=== PATIENT | female | born 1960 | race Caucasian/White ===

== ENCOUNTER → 2017-07-11 09:35 | Emergency (ER) | payer OTHER ==
[~2017-07-11 09:35] MED LIST: NS 0.9% 1000 ML* 1,000 ML IV ONE
[2017-07-11 10:41] LABS: Hematocrit 35 % (35-47); Hemoglobin 11.5 g/dl (12.0-16.0); Mean Corpuscular HGB Conc 33 g/dl (31-36); Mean Corpuscular Hemoglobin 33 pg (27-31); Mean Corpuscular Volume 98 fL (80-97); Mean Platelet Volume 8 um3 (7.4-10.4); Red Blood Count 3.52 10^6/ul (4.0-5.4); Red Cell Distribution Width 13 % (10.5-15)
--- NOTE | 2017-07-11 10:58 | ED ---
Syncope/Near Syncope - HPI Summary HPI Summary: Patient SILVESTRE with a syncopal episode 30 minutes prior to arrival. She was at a swimming class this morning when she mentioned to the instructor she was feeling light headed and dizzy. She was able to get out of the pool and then proceeded to syncopize. The ambulance was called and the patient then told the EMT she had taken a marijuana cookie for the first time early this at approximately 2am. She proceeded to go to bed after and was functioning fine this morning prior to her swimming class. She notes that she has anxiety over swimming but has been in the class for awhile without having any episodes. She endorses 2 previous episodes of syncope many years ago, but never determined the cause. She denies health problems. She takes lithium, gabapentin and prozac. She denies taking any excess or missing any doses. ON exam, she denies chest pain, pressure, dizziness, fatigue, weakness, abdominal pain, sweats or chills. Surgery "tummy tuck" 2 months ago with no complications. - History Of Current Complaint Chief Complaint: EDSyncope Time Seen by Provider: 07/11/17 09:48 Hx Obtained From: Patient Onset/Duration: Sudden Onset Timing: Constant Context: Witnessed Activity At Onset: Exertion Associated Head Trauma: No Aggravating Factor(s): Nothing Alleviating Factor(s): Nothing Associated Signs And Symptoms: Weakness Frequency: Episodes x___ - 1, Episodes Lasting ____ (in Mins/Days/Weeks/Years) - 5 min - Risk Factors Cardiac Risk Factors: Negative Dysrhythmia Risk Factors: Negative Risk Factor(s): Negative - Allergies/Home Medications Allergies/Adverse Reactions: Allergies Allergy/AdvReac Type Severity Reaction Status Date / Time No Known Allergies Allergy Verified 07/11/17 09:48 Home Medications: Home Medications FLUoxetine CAP* [Prozac CAP*] 40 mg PO .DAILY AM 07/11/17 [History Confirmed ] Gabapentin CAP(*) [Neurontin 300 CAP(*)] 300 mg PO TID 07/11/17 [History Confirmed 07/11/17] [place] Carbonate ER TAB* 900 mg PO DAILY 07/11/17 [History Confirmed 07/11/17] PMH/Surg Hx/FS Hx/Imm Hx Previously Healthy: Yes - Immunization History Hx Pertussis Vaccination: No Immunizations Up to Date: Unable to Obtain/Confirm Infectious Disease History: No Infectious Disease History: Denies: Traveled Outside the [place] in Last 30 Days - Social History Occupation: Employed Part-time Lives: With Family Alcohol Use: None Hx Substance Use: Yes Substance Use Type: Reports: Marijuana Substance Use Comment - Amount & Last Used: "cookie for the first time at 2:00 am" Hx Tobacco Use: No Smoking Status (MU): Never Smoked Tobacco Review of Systems Constitutional: Negative Eyes: Negative Cardiovascular: Negative Respiratory: Negative Genitourinary: Negative Positive: no symptoms reported, see HPI Musculoskeletal: Negative Positive: Weakness Positive: Anxious All Other Systems Reviewed And Are Negative: Yes Physical Exam Triage Information Reviewed: Yes Vital Signs On Initial Exam: Initial Vitals BP 121/84 07/11/17 09:40 Vital Signs Reviewed: Yes Appearance: Positive: Well-Appearing, Well-Nourished Skin: Positive: Skin Color Reflects Adequate Perfusion, Diaphoretic Head/Face: Positive: Normal Head/Face Inspection Eyes: Positive: EOMI, ROBERT, Conjunctiva Clear, Other: - mydriasis ENT: Positive: Pharynx normal, TMs normal, Other - dry mucous membranes Neck: Positive: Supple, No Lymphadenopathy Respiratory/Lung Sounds: Positive: Clear to Auscultation, Breath Sounds Present Cardiovascular: Positive: Normal, RRR, Pulses are Symmetrical in both Upper and Lower Extremities Neurological: Positive: Sensory/Motor Intact, Normal Gait, Disoriented, Slurred Speech, Other - oriented to person and place but not time Psychiatric: Positive: Normal AVPU Assessment: Alert - [place] Coma Scale Best Eye Response: 3 - To Speech Best Motor Response: 6 - Obeys Commands Best Verbal Response: 4 - Confused Coma Scale Total: 14 Diagnostics - Vital Signs Vital Signs Temp Pulse Resp BP Pulse Ox 07/11/17 09:45 98.1 F 77 20 121/84 98 07/11/17 09:42 98.1 F 74 16 121/84 97 07/11/17 09:41 74 18 97 07/11/17 09:40 121/84 - Laboratory Lab Results: Lab Results 07/11/17 Range/Units 10:27 WBC 6.0 (3.5-10.8) 10^3/ul RBC 3.52 L (4.0-5.4) 10^6/ul Hgb 11.5 L (12.0-16.0) g/dl Hct 35 (35-47) % MCV 98 H (80-97) fL MCH 33 H (27-31) pg MCHC 33 (31-36) g/dl RDW 13 (10.5-15) % Plt Count 228 (150-450) 10^3/ul MPV 8 (7.4-10.4) um3 Neut % (Auto) 79.3 (38-83) % Lymph % (Auto) 10.2 L (25-47) % [place] % (Auto) 7.9 (1-9) % Eos % (Auto) 1.7 (0-6) % Baso % (Auto) 0.9 (0-2) % Absolute Neuts (auto) 4.7 (1.5-7.7) 10^3/ul Absolute Lymphs (auto) 0.6 L (1.0-4.8) 10^3/ul Absolute Monos (auto) 0.5 (0-0.8) 10^3/ul Absolute Eos (auto) 0.1 (0-0.6) 10^3/ul Absolute Basos (auto) 0.1 (0-0.2) 10^3/ul Absolute Nucleated RBC 0 10^3/ul Nucleated RBC % 0 Result Diagrams: 07/11/17 10:27 07/11/17 10:27 Lab Statement: Any lab studies that have been ordered have been reviewed, and results considered in the medical decision making process. Course/Dx Course Of Treatment: During the course of treatment, a complete neuro exam was completely. . Normal head/face inspection with no cephalohematoma. Reflexes intact. EOMI, ROBERT, visual acuity intact. Mydriasis noted. No obvious confusion or memory loss per patient and family. MMSE OK. GCS 14. Patient oriented to person, place and date, although asked twice for correct date. No obvious deformity or signs of trauma. Finger to nose positive. heel to toe OK. Speech normal, facial symmetry, normal gait, CN II-III intact. Patient denies LOC. ROM , strength, reflexes in upper and lower extremity intact, sensation intact. Patient is extremely fatigued and is asked multiple times to repeat herself d/t slurring and fatigue. She repeatedly will stop mid-sentence and fall asleep. When asked if she is tired, she states she "feels, much better." But she is refusing through exam to open her eyes, stating she is "tired.". Drug screen obtained: EKG shows sinus rhymthm with no changes. CT brain obtained: IMPRESSION: NO EVIDENCE FOR GROSS ACUTE INFARCT, MASS EFFECT OR HEMORRHAGE. Labs obtained: Bun/cr elevated at 38 but likely sescondary to the lithium. this is baseline compared to last year. Provider spoke with who was unaware she ingested the pot cookie the night before. Drug screening shows canniboids only. Positive for 3+ leuks. Prescribed macrobid 100mg BID x 5 days. Avoided bactrim for kidney function. Medications were reveiwed with patient. Encouarged to follow up with PCP or return to ED for worsening symptoms. Return precautions given. Patient understands and agrees with plan. Ok for discharge. - Diagnoses Differential Diagnosis/HQI/PQRI: Positive: Cerebral Vascular Accident, Coronary Artery Disease, Metabolic Reaction, Vasovagal Episode Provider Diagnoses: Syncope Discharge - Discharge Plan Condition: Stable Disposition: HOME Prescriptions: Nitrofurantoin Monohyd Macro [Macrobid] 100 mg PO BID #10 cap Patient Education Materials: Syncope (ED) Referrals: Elizabeth Dominguez NP [Primary Care Provider] - Additional Instructions: Follow up with your PCP Drink plenty of fluids and rest today
[2017-07-11 11:00] LABS: BUN/Creatinine Ratio 38.6 (8-20); Calcium 9.3 mg/dL (8.6-10.3); EGFR African American 91.8 (>60); EGFR Non-African American 71.4 (>60); Globulin 2.9 g/dL (2-4); Magnesium 2.2 mg/dL (1.9-2.7); Potassium 3.9 mmol/L (3.5-5.0); Total Bilirubin 0.3 mg/dL (0.2-1.0); Total Protein 6.9 g/dL (6.4-8.9); Troponin I 0.01 ng/mL (<0.04)
[2017-07-11 11:17] LABS: Acetaminophen < 15 mcg/mL; Alcohol < 10 mg/dL (<10); Lithium 0.92 mmol/L (0.6-1.2); Salicylate < 2.50 mg/dL (<30)
--- NOTE | 2017-07-11 11:18 | RAD ---
INDICATION: Altered mental status. COMPARISON: There are no prior studies available for comparison. TECHNIQUE: Contiguous axial sections of the brain were obtained from the skull base to the vertex without contrast. FINDINGS: The ventricles, cisterns and sulci are within normal limits. No significant focal abnormality or mass effect is seen. There is no evidence for hemorrhage. 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 No significant focal osseous abnormality is seen. The visualized portion of the paranasal sinuses and mastoid air cells appear clear. IMPRESSION: NO EVIDENCE FOR GROSS ACUTE INFARCT, MASS EFFECT OR HEMORRHAGE.
[2017-07-11 14:14] LABS: Urine Bacteria 1+ (Absent); Urine Bilirubin Negative (Negative); Urine Glucose Negative (Negative); Urine Nitrite Negative (Negative)
[2017-07-11 14:19] LABS: Benzodiazepine Urine Screen None Detected (None Detect)
[2017-07-11 16:51] VITALS: BP 90/62
== END | disposition home or self-care (01) ==
LOC: ED 09:35
DX: R55 Syncope and collapse (principal); R53.1 Weakness; F41.9 Anxiety disorder, unspecified
CPT/HCPCS: 36415; 70450; 80053; 80178; 80307; 80320; 80329; 81003; 81015; 82947; 83735; 84443; 84484; 85025; 87086; 93005; 99283; G0480

== ENCOUNTER 2018-08-07 22:50 | Emergency (ER) | payer OTHER ==
[2018-08-07 22:54] VITALS: BP 113/85
[2018-08-07] MEDS ORDERED: Morphine VIAL* 4 MG/ML VIAL (1 ml vial) IV ONE (23:31)
[2018-08-07] MEDS ORDERED: Dicyclomine CAP* 10 MG PO ONE (23:31)
[2018-08-07] MEDS ORDERED: NS 0.9% 1000 ML* 1,000 ML IV ONE (23:31)
--- NOTE | 2018-08-07 23:32 | ED ---
Abdominal Pain/Female - HPI Summary HPI Summary: This patient is a 57 year old female presenting to [facility] accompanied by with a chief complaint of abd pain since 3 days ago, continuously worsening. Patient states that pain is constant. The pain is rated 9/10 in severity. Symptoms aggravated by nothing. Symptoms alleviated by nothing. The patient treated the sx with an enema to no relief. Patient additionally reports constipation and states that she has not been moving her bowels. She states that constipation is a recurring problem for her and that she has treated it with miralax normally, but this time there was no relief. Patient denies nausea , vomiting. - History of Current Complaint Chief Complaint: EDAbdPain Stated Complaint: ABD PAIN Time Seen by Provider: 08/07/18 23:21 Hx Obtained From: Patient Onset/Duration: Still Present Timing: Constant Severity Currently: Severe Pain Intensity: 9 Pain Scale Used: 0-10 Numeric Location: Diffuse Aggravating Factor(s): Nothing Alleviating Factor(s): Nothing Associated Signs and Symptoms: Positive: Negative - nausea, vomiting, Constipation Allergies/Adverse Reactions: Allergies Allergy/AdvReac Type Severity Reaction Status Date / Time No Known Allergies Allergy Verified 07/11/17 09:48 PMH/Surg Hx/FS Hx/Imm Hx Previously Healthy: Yes EENT History: Denies: Hx Deafness Infectious Disease History: No Infectious Disease History: Denies: Traveled Outside the [place] in Last 30 Days - Family History Known Family History: Negative: Hypertension - Social History Lives: With Family Alcohol Use: None Hx Substance Use: Yes Substance Use Type: Reports: Marijuana Hx Tobacco Use: No Smoking Status (MU): Never Smoked Tobacco Review of Systems Negative: Fever Positive: Abdominal Pain, Other - constipation. Negative: Vomiting, Nausea All Other Systems Reviewed And Are Negative: Yes Physical Exam - Summary Physical Exam Summary: Appearance: Well-appearing, Well-nourished, lying in bed comfortable Skin: Warm, no obvious rash, mild diaphoresis Eyes: sclera anicteric, no conjunctival pallor ENT: mucous membranes moist Neck: deferred Respiratory: No signs of respiratory distress Cardiovascular: Appears well perfused, pulses are nml Abdomen: lower abd tenderness without peritoneal signs. Musculoskeletal: Moving all 4 extremities without obvious discomfort Neurological: Awake and alert, mentation is normal, speech is fluent and appropriate Psychiatric: affect is normal, does not appear anxious or depressed Triage Information Reviewed: Yes Vital Signs On Initial Exam: Initial Vitals Temp Pulse Resp BP Pulse Ox 98.5 F 82 16 113/85 98 08/07/18 22:52 08/07/18 22:52 08/07/18 22:52 08/07/18 22:52 08/07/18 22:52 Vital Signs Reviewed: Yes Diagnostics - Vital Signs Vital Signs Temp Pulse Resp BP Pulse Ox 08/07/18 22:52 98.5 F 82 16 113/85 98 - Laboratory Result Diagrams: 08/07/18 23:48 08/07/18 23:48 Lab Statement: Any lab studies that have been ordered have been reviewed, and results considered in the medical decision making process. - CT CT Abd/Pel CT Interpretation: No Acute Changes - CT Abd/Pel reveals, per radiologist, 1. No acute findings. 2. The colon is partially filled with stool and air. The patient could be constipated. ED physician has reviewed this radiology report. CT Interpretation Completed By: Radiologist Abdominal Pain Fem Course/Dx - Course Course Of Treatment: This patient is a 57 year old female presenting to [facility] accompanied by with a chief complaint of abd pain since 3 days ago, continuously worsening. CT Abd/Pel reveals, per radiologist, 1. No acute findings. 2. The colon is partially filled with stool and air. The patient could be constipated. ED physician has reviewed this radiology report. Bloodwork Obtained. Urinalysis Obtained. In the ED course the patient was given NS 0.9% bolus IV, Morphine 4mg IV, Iohexol 105mL IV, Bentyl 10mg PO. Patient will be discharged with a dx of Constipation and a prescription for Golytely. Patient is advised to follow up with PCP if symptoms reoccur. The patient is agreeable with this plan. Discharge - Sign-Out/Discharge Documenting (check all that apply): Patient Departure - Discharge Plan Condition: Good Disposition: HOME Prescriptions: Peg 3000 Gi Lavage* [Golytely*] 4,000 ml PO ONCE #1 btl Patient Education Materials: Constipation (ED) Referrals: Elizabeth Dominguez NP [Primary Care Provider] - - Attestation Statements Document Initiated by Scribe: Yes Documenting Scribe: Merlyn Wolfe Provider For Whom Scribe is Documenting (Include Credential): MD Marita Guzmanibtrenton Attestation: Merlyn Peng scribed for Ziggy Edmonds MD on 08/08/18 at 0529.
[2018-08-07] MEDS ORDERED: Morphine INJ* 4 MG/ML 1 ML SYRINGE (NEW SYRINGE VERSION) ONE (23:46)
[2018-08-07 23:53] LABS: Urine Appearance Clear; Urine Blood 1+ (Negative); Urine Color Yellow; Urine Ketones Negative (Negative); Urine Protein Negative (Negative); Urine Red Blood Cell 3+(>10/hpf) (Absent); Urine Specific Gravity 1.012 (1.010-1.030); Urine Urobilinogen Negative (Negative); Urine White Blood Cell Absent (Absent)
[2018-08-07 23:58] LABS: ABS Basophils 0.1 10^3/ul (0-0.2); ABS Eosinophils 0 10^3/ul (0-0.6); ABS Monocytes 0.7 10^3/ul (0-0.8); ABS Neutrophils 9.9 10^3/ul (1.5-7.7); ABS Nucleated RBC 0 10^3/ul; Eosinophil % 0.3 % (0-6); Hematocrit 41 % (35-47); Lymphocyte % 8.2 % (25-47); Mean Corpuscular HGB Conc 34 g/dl (31-36); Mean Corpuscular Hemoglobin 32 pg (27-31); Mean Corpuscular Volume 95 fL (80-97); Mean Platelet Volume 8.5 um3 (7.4-10.4); Nucleated Red Blood Cells % 0.1; Platelet Count 245 10^3/ul (150-450); Red Blood Count 4.32 10^6/ul (4.00-5.40); Red Cell Distribution Width 13 % (10.5-15); White Blood Count 11.7 10^3/ul (3.5-10.8)
[2018-08-08 00:20] LABS: EGFR Non-African American 68.3 (>60)
[2018-08-08] MEDS ORDERED: Iohexol 300* (CONTRAST) 10 ML SDV IV ONE (02:52)
--- NOTE | 2018-08-08 03:44 | RAD ---
EXAM: CT Abdomen and Pelvis With Intravenous Contrast CLINICAL HISTORY: 57 years old, female; Pain; Abdominal pain; Localized; Lower; Prior surgery; Surgery date: 6+ months; Surgery type: Tummy tuck; Additional info: Low abd pain x 3 days, getting worse TECHNIQUE: Axial computed tomography images of the abdomen and pelvis with intravenous contrast. All CT scans at this facility use at least one of these dose optimization techniques: automated exposure control; mA and/or kV adjustment per patient size (includes targeted exams where dose is matched to clinical indication); or iterative reconstruction. Coronal and sagittal reformatted images were created and reviewed. CONTRAST: 105 mL of OMNI 300 administered intravenously. COMPARISON: No relevant prior studies available. FINDINGS: Lung bases: Bilateral breast augmentation. Linear opacities located in left lung base which could represent areas of atelectasis and/or scarring. ABDOMEN: Liver: The liver is of normal size and appearance no focal hepatic lesion. Gallbladder and bile ducts: The gallbladder is distended. No calcified gallstone. No gallbladder wall thickening. No ductal dilation. Pancreas: Unremarkable. No mass. No ductal dilation. Spleen: The spleen is of normal size and appearance. Adrenals: The adrenal glands are normal in appearance. Kidneys and ureters: The kidneys are of normal size and appearance. No hydronephrosis or nephrolithiasis. Stomach and bowel: No bowel obstruction. No abnormal bowel wall thickening. The colon is distended with stool and air. No abnormal bowel wall thickening. No bowel wall pneumatosis. No mesenteric inflammation. PELVIS: Appendix: No findings to suggest acute appendicitis. Bladder: Unremarkable. No mass. Reproductive: No adnexal mass. ABDOMEN and PELVIS: Intraperitoneal space: No free intra-abdominal fluid or air. Bones/joints: No acute fracture. No dislocation. Soft tissues: Umbilical hernia containing fat. Vasculature: Unremarkable. No abdominal aortic aneurysm. Lymph nodes: Unremarkable. No enlarged lymph nodes. IMPRESSION: 1. No acute findings. 2. The colon is partially filled with stool and air. The patient could be constipated.
== END 2018-08-08 05:36 | disposition home or self-care (01) ==
LOC: ED 22:50
DX: K59.00 Constipation, unspecified (principal); R10.9 Unspecified abdominal pain
CPT/HCPCS: 36415; 74177; 80053; 81003; 81015; 83605; 83690; 85025; 96374; 96375; 99284; A9270-GY; J2270; Q9967

== ENCOUNTER 2019-04-10 08:31 | Emergency (ER) | payer OTHER ==
--- OUTSIDE RECORDS SUMMARY | 2019-04-10 08:50 | XMS REPORT ---
:1960 Author Organization [facility] Address [address] [place] [address] Care Team Providers Name Role Phone Leonardo Anguiano Unavailable Unavailable PROBLEMS Type Condition ICD9-CM Code [id number] Code Onset Condition SNOMED Code Dates Status Problem BMI Z68.30 Active 566146859 30.0-30.9,adult Problem Other obesity E66.09 Active 905417235 due to excess calories Problem High cholesterol E78.00 Active 53713345 Problem Bipolar 1 F31.9 Active 909225230 disorder Problem Anxiety F41.9 Active 34748399 ALLERGIES No Information ENCOUNTERS Encounter Location Date Diagnosis [facility] [address] [facility], [place] [address] [place], [place] [address] [facility] [address] [facility], [place] [address] [facility] [address] [place] [address], [place] [address] [place], [place] [address] [facility] [address] [facility] [address] [place], [place] [address] [facility] [address] [place] [address] [place], [place] [address] [place], [place] [address] [facility] [place] [address] [facility] [place], [place] [address] [facility] [address] [place] [address] [place], [place] [address] [facility] [address] [facility] [place], [place] [address] [facility] [address] [place], Feb, Bipolar 1 [place] [address] F31.9 [facility] [address] [place], Jan, Bipolar 1 [place] [address] F31.9 [facility] [address] [place], Jan, Bipolar 1 [place] [address] [address]31[address] [place], [place] [address] [facility] [address] [place], Jan, Bipolar 1 [place] [address] F31.9 and Anxiety F41.9 [facility] [address] [place], [place] [address] [place], [place] [address] [facility] [address] [place], Dec, Bipolar 1 [place] [address] F31.9 ; Anxiety F41.9 ; Screening for colon cancer Z12.11 ; Need for hepatitis C screening test Z11.59 and Screening, lipid Z13.220 [place] [facility] [address] [place], Nov, Bipolar 1 [place] [address] F31.9 [facility] [address] [facility] [place], [place] [address] [facility] [address] [place], Nov, Bipolar 1 [place] [address] F31.9 [facility] [address] [place], Oct, Bipolar 1 [place] [address] F31.9 [facility] [address] [facility] [address] Oct, Bipolar 1 [place] [address] F31.9 [facility] [address] [place], Oct, Bipolar 1 [place] [address] F31.9 [facility] [address] [place], [place] [address] [facility] [address] [place] [address] Sep, Bipolar 1 [place] [address] F31.9 [facility] [address] [place] [address] [place], [place] [address] [facility] [address] [place] [address] Sep, [place] [address] [facility] [address] [place], Aug, Bipolar 1 [place] [address] F31.9 [facility] [address] [facility] [place], [place] [address] [facility] [address] [place], [place] [address] [facility] [address] [place], Jul, Bipolar 1 [place] [address] F31.9 [place] [facility] [address] [place], [place] [address] [facility] [address] [place], Jul, Bipolar 1 [place] [address] F31.9 ; BMI 30.0-30.9,adult Z68.30 and Other obesity due to excess calories E66.[address] [place], [place] [address] [place] [facility] [address] [place], Jul, Bipolar 1 [place] [address] F31.9 [place] [facility] [address] [place], Jul, Bipolar 1 [place] [address] F31.9 [facility] [address] [facility] Jul, [place] [address] [place] [facility] [address] [place], Jul, Bipolar 1 [place] [address] F31.9 [place] [facility] [address] [place], Jun, Bipolar 1 [place] [address] F31.9 [place] [facility] [address] [place], Jun, Bipolar 1 [place] [address] F31.9 [place] [facility] [address] [place], Jun, Bipolar 1 [place] [address] F31.9 [place] [facility] [address] [place], Jun, Bipolar 1 [place] [address] F31.9 [facility] [address] Jun, [place] [address] cancer Z12.31 [place] [facility] [address] [place], Jun, Bipolar 1 [place] [address] F31.9 [place] [facility] [address] [place], [place], Bipolar 1 [place] [address] F31.9 [place] [facility] [address] [place], [place] [address] [place] [facility] [address] [facility] [place], [place] [address] [facility] [address] [facility] [place], [place] [address] [place] [facility] [address] [facility] [place], [place] [address] [place] [facility] [address] [place] [address] [place], [place], Bipolar 1 [place] [address] F31.9 ; Screening for cervical cancer Z12.4 ; Other obesity due to excess calories E66.09 and BMI 30.0-30.9,adult Z68.30 [place] [facility] [address] [place] [address] [place], [place], Impacted cerumen , [place] [address] [address] [place], [place] [address] [place] [address] [facility] [address] [place] [address] [place], Dec, Bipolar 1 [place] [address] F31.9 ; Anxiety F41.9 and Screening for cervical cancer Z12.4 [place] [facility] [address] [place] [address] [place], [place] [address] IMMUNIZATIONS No Known Immunizations SOCIAL HISTORY Never Assessed REASON FOR REFERRAL FUNCTIONAL STATUS PLAN OF CARE VITAL SIGNS MEDICATIONS Unknown Medications PROCEDURES No Known procedures RESULTS No Results REASON FOR VISIT to make f/u appt Insurance Providers [facility] Health Member Patient Patient Patient Patient Patient Subscriber Subscriber Subscriber Group Insurance Plan Plan Plan Plan ID Relationship Address Phone Name Date of ID Name Date of No Type Insurance Insurance Insurance Coverage to Subscriber Address Phone Name Dates Medicaid [id number] [phone] Medicaid self Deborah [id number] [facility]rap [facility] [address] [facility] [facility] [address] [place] [phone] [place] self Deborah [id number] Ess Plan [id number] Ess Plan 1 [place] [address] [place] [address] [place] [address] [employer] Case [phone] Case self Deborah [id number] Management [place] [address] [facility] [address] [facility] [place] [phone] [place] Cabrera [id number] Essential [place] [address] [place] Plan 1 2 [place] [id number] Plan 1 2 Medical Medical MEDICAL (GENERAL) HISTORY Type Description Date Medical History depression and anxiety. Medical History bipolar Medical History nerve pain. Surgical History 1998 Hospitalization History 1998 Hospitalization History ED visits on several occasions, for mental health issues
--- OUTSIDE RECORDS SUMMARY | 2019-04-10 08:50 | XMS REPORT ---
:1960 Author Organization [facility] Address [address] [place] [address] Care Team Providers Name Role Phone Leonardo Anguiano Unavailable Unavailable PROBLEMS Type Condition ICD9-CM Code XNW86-TM Code Onset Condition SNOMED Code Dates Status Problem BMI Z68.30 Active 290839202 30.0-30.9,adult Problem Other obesity E66.09 Active 206999686 due to excess calories Problem High cholesterol E78.00 Active 18750477 Problem Bipolar 1 F31.9 Active 123987292 disorder Problem Anxiety F41.9 Active 10276833 ALLERGIES No Information ENCOUNTERS Encounter Location Date Diagnosis [facility] [address] [facility], [place] [address] Apr, [place] [address] [facility] [address] [facility], [place] [address] [facility] [address] [place] [address], [place] [address] [place], [place] [address] [facility] [address] [facility] [address] March, [place] [address] [facility] [address] [place] [address] [place], [place] [address] March, [place] [address] [facility] - [facility] - [place] [address] [facility] March, [place] [address] [facility] [address] [place] [address] [place], [place] [address] [facility] [address] [facility] March, [place] [address] [facility] [address] [place], Feb, Bipolar [place] [address] F31.9 [facility] [address] [place], Jan, [place]ipolar 1 [place] [address] F31.9 [facility] [address] [place], Jan, [place]ipolar 1 [place] [address] [address] Jan, [place] [address] [facility] [address] [place], Jan, [place]ipolar 1 [place] [address] F31.9 and Anxiety F41.9 [facility] [address] [place], [place] [address] Dec, [place] [address] [facility] [address] [place], Dec, Bipolar 1 [place] [address] F31.9 ; Anxiety F41.9 ; Screening for colon cancer Z12.11 ; Need for hepatitis C screening test Z11.59 and Screening, lipid Z13.220 [place] [facility] [address] [place], Nov, Bipolar 1 [place] [address] F31.9 [facility] [address] [facility] Nov, [place] [address] [facility] [address] [place], Nov, Bipolar 1 [place] [address] F31.9 [facility] [address] [place], Oct, Bipolar 1 [place] [address] F31.9 [facility] [address] [facility] [address] Oct, Bipolar 1 [place] [address] F31.9 [facility] [address] [place], Oct, Bipolar 1 [place] [address] F31.9 [facility] [address] [place], [place] [address] [facility] [address] [place] [address] Sep, Bipolar 1 [place] [address] F31.9 [facility] [address] [place] [address] Sep, [place] [address] [facility] [address] [place] [address] Sep, [place] [address] [facility] [address] [place], Aug, Bipolar 1 [place] [address] F31.9 [facility] [address] [facility] Aug, [place] [address] [facility] [address] [facility] Aug, [place] [address] [facility] [address] [place], Jul, Bipolar 1 [place] [address] F31.9 [place] [facility] [address] [place], [place] [address] [facility] [address] [place], Jul, Bipolar 1 [place] [address] F31.9 ; BMI 30.0-30.9,adult Z68.30 and Other obesity due to excess calories E66.[address] Jul, [place] [address] [place] [facility] [address] [place], Jul, Bipolar 1 [place] [address] F31.9 [place] [facility] [address] [place], Jul, [place]ipolar 1 [place] [address] F31.9 [facility] [address] [facility] Jul, [place] [address] [place] [facility] [address] [place], Jul, Bipolar 1 [place] [address] F31.9 [place] [facility] [address] [place], Jun, Bipolar 1 [place] [address] F31.9 [place] [facility] [address] [place], Jun, Bipolar 1 [place] [address] F31.9 [place] [facility] [address] [place], Jun, Bipolar 1 [place] [address] F31.9 [place] [facility] [address] [place], Jun, Bipolar 1 [place] [address] F31.9 [facility] [address] Jun, [place] [address] cancer Z12.31 [place] [facility] [address] [place], Jun, Bipolar 1 [place] [address] F31.9 [place] [facility] [address] [place], May, [place]ipolar 1 [place] [address] F31.9 [place] [facility] [address] [place], [place] [address] [place] [facility] [address] [facility] [place], [place] [address] [place] [facility] [address] [facility] [place], [place] [address] [place] [facility] [address] [facility] [place], [place] [address] [place] [facility] [address] [facility] [place], Apr, Bipolar 1 [place] [address] F31.9 ; Screening for cervical cancer Z12.4 ; Other obesity due to excess calories E66.09 and BMI 30.0-30.9,adult Z68.30 [place] [facility] [address] [place] [address] [place], Apr, Impacted cerumen , [place] [address] [address]61[address] Apr, [place] [address] [place] [facility] [address] [place] [address] [place], [place] [address] [place] [facility] [address] [facility] [place], Dec, Bipolar 1 [place] [address] F31.9 ; Anxiety F41.9 and Screening for cervical cancer Z12.4 [place] [facility] [address] [place] [address] [place], [place] [address] IMMUNIZATIONS No Known Immunizations SOCIAL HISTORY Never Assessed REASON FOR REFERRAL FUNCTIONAL STATUS PLAN OF CARE VITAL SIGNS MEDICATIONS Unknown Medications PROCEDURES No Known procedures RESULTS No Results REASON FOR VISIT pt update Insurance Providers [facility] Member Patient Patient Patient Patient Patient Subscriber Subscriber Subscriber Group Insurance Plan Plan Plan Plan ID Relationship Address Phone Name Date of ID Name Date of No Type Insurance Insurance Insurance Coverage to Subscriber Address Phone Name Dates [place] [phone] [place] self Deborah [id number] Essential [place] 47 Essential [place] [address] Plan 1 2 Medical Medical Case [phone] Case self Deborah [id number] Management [place] 02 Management [place] [facility] [address] [facility] Medicaid [id number] [phone] Medicaid self Deborah [id number] Wrap [facility] 56 [address] [facility] [address] [place] [phone] [place] self Deborah [id number] Ess Plan 1 2906 08 Ess Plan 1 [place] 2 Dental [place] [address] [place] [address] [facility] MEDICAL (GENERAL) HISTORY Type Description Date Medical History depression and anxiety. Medical History bipolar Medical History nerve pain. Surgical History 1998 Hospitalization History 1998 Hospitalization History ED visits on several occasions, for mental health issues
--- OUTSIDE RECORDS SUMMARY | 2019-04-10 08:51 | XMS REPORT ---
:1960 Author Organization [facility] Address [address] [place] [address] Care Team Providers Name Role Phone Leonardo Anguiano Unavailable Unavailable PROBLEMS Type Condition ICD9-CM Code KRI54-WA Code Onset Condition SNOMED Code Dates Status Problem BMI Z68.30 Active 497767692 30.0-30.9,adult Problem Other obesity E66.09 Active 624220429 due to excess calories Problem High cholesterol E78.00 Active 96791407 Problem Bipolar 1 F31.9 Active 785071256 disorder Problem Anxiety F41.9 Active 78574984 ALLERGIES No Information ENCOUNTERS Encounter Location Date Diagnosis [facility] [address] [place], [place] [address] [facility] [address] [place], [place] [address] [facility] [address] [facility] [place], [place] [address] [facility] [address] [facility] [place], [place] [address] [facility] Resource - [place] [address] [place], [place] [address] [facility] [address] [facility] [place], [place] [address] [facility] [address] [facility] [place], [place] [address] [facility] [address] [place] [place], Feb, Bipolar 1 [place] [address] F31.9 [facility] [address] [place] [place], Jan, Bipolar 1 [place] [address] F31.9 [facility] [address] [place] [place], Jan, [place]ipolar 1 [place] [address] F31.9 [facility] [address] [facility] Jan, [place] [address] [facility] [address] [place], Jan, [place]ipolar 1 [place] [address] F31.9 and Anxiety F41.9 [facility] [address] [place], [place] [address] Dec, [place] [address] [facility] [address] [facility] [place], Dec, Bipolar 1 [place] [address] F31.9 ; Anxiety F41.9 ; Screening for colon cancer Z12.11 ; Need for hepatitis C screening test Z11.59 and Screening, lipid Z13.220 [place] [facility] [address] [place] [place], Nov, Bipolar 1 [place] [address] F31.9 [facility] [address] [facility] Nov, [place] [address] [facility] [address] [place] [place], Nov, [place]ipolar 1 [place] [address] F31.9 [facility] [address] [facility] [place], Oct, Bipolar 1 [place] [address] F31.9 [facility] [address] [facility] [address] Oct, [place]ipolar 1 [place] [address] F31.9 [facility] [address] [place] [place], Oct, [place]ipolar 1 [place] [address] F31.9 [facility] [address] [place], [place] [address] [facility] [address] [facility] Sep, [place]ipolar 1 [place] [address] F31.9 [facility] [address] [facility] Sep, [place] [address] [facility] [address] [facility] Sep, [place] [address] [facility] [address] [facility] [place], Aug, Bipolar 1 [place] [address] F31.9 [facility] [address] [facility] Aug, [place] [address] [place] [address] [facility] Aug, [place] [address] [place] [address] [place], Jul, Bipolar 1 [place] [address] F31.9 [place] [facility] [address] [place], [place] [address] [facility] [address] [place], Jul, Bipolar 1 [place] [address] F31.9 ; BMI 30.0-30.9,adult Z68.30 and Other obesity due to excess calories E66.[address] Jul, [place] [address] [facility] [address] [place], Jul, Bipolar 1 [place] [address] F31.9 [place] [facility] [address] [place], Jul, [place]ipolar 1 [place] [address] F31.9 [facility] [address] [facility] Jul, [place] [address] [facility] [address] [place], Jul, Bipolar 1 [place] [address] F31.9 [place] [facility] [address] [place], Jun, [place]ipolar 1 [place] [address] F31.9 [place] [address] [place], Jun, Bipolar 1 [place] [address] F31.9 [place] [facility] [address] [place], Jun, Bipolar 1 [place] [address] F31.9 [place] [facility] [address] [place], Jun, Bipolar 1 [place] [address] F31.9 [facility] [address] [facility] Jun, Screening for breast [place], [place] [address] cancer Z12.31 [place] [address] [place], Jun, Bipolar 1 [place] [address] F31.9 [place] [facility] [address] [place], [place], [place]ipolar 1 [place] [address] F31.9 [place] [facility] [address] [place], [place] [address] [facility] [address] [place], [place] [address] [facility] [address] [place], [place] [address] [facility] [address] [place], [place] [address] [facility] [address] [place], [address] [place], 2018 Bipolar 1 [place] [address] F31.9 ; Screening for cervical cancer Z12.4 ; Other obesity due to excess calories E66.09 and BMI 30.0-30.9,adult Z68.[address] [place], Apr, [place] [address] ear H61.[address] [place] [address] Apr, [place] [address] [facility] [address] [place] [address] [place], [place] [address] [place], Dec, Bipolar 1 [place] [address] F31.9 ; Anxiety F41.9 and Screening for cervical cancer Z12.[address] [place], [place] [address] IMMUNIZATIONS No Known Immunizations SOCIAL HISTORY Never Assessed REASON FOR REFERRAL FUNCTIONAL STATUS PLAN OF CARE VITAL SIGNS MEDICATIONS Unknown Medications PROCEDURES No Known procedures RESULTS No Results REASON FOR VISIT Patient request for Friday appt 03/22 Insurance Providers [facility] Member Patient Patient Patient Patient Patient Subscriber Subscriber Subscriber Group Insurance Plan Plan Plan Plan ID Relationship Address Phone Name Date of ID Name Date of No Type Insurance Insurance Insurance Coverage to Subscriber Address Phone Name Dates Medicaid [id number] [phone] Medicaid self Deborah [id number] Wrap [facility] [address] [place] [address] [place] [phone] [place] self Deborah [id number] Ess Plan 1 [id number] 08 Ess Plan 1 [place] 2 Dental [place] 2 [place] [address] [employer] [place] [phone] [place] self Deborah [id number] Essential [place] 47 Ess[place] Plan 1 2 [place] [address] Plan 1 2 Medical Medical Case [phone] Case self Deborah [id number] Management [place] Management [facility] [id number] [place] [address] MEDICAL (GENERAL) HISTORY Type Description Date Medical History depression and anxiety. Medical History bipolar Medical History nerve pain. Surgical History 1998 Hospitalization History 1998 Hospitalization History ED visits on several occasions, for mental health issues
--- OUTSIDE RECORDS SUMMARY | 2019-04-10 08:51 | XMS REPORT ---
:1960 Author Organization [facility] Address [address] [place] [address] Care Team Providers Name Role Phone Leonardo Angiuano Unavailable Unavailable PROBLEMS Type Condition ICD9-CM Code YCE58-NM Code Onset Condition SNOMED Code Dates Status Problem BMI Z68.30 Active 431418781 30.0-30.9,adult Problem Other obesity E66.09 Active 968710729 due to excess calories Problem High cholesterol E78.00 Active 09821679 Problem Bipolar 1 F31.9 Active 976140840 disorder Problem Anxiety F41.9 Active 84174447 ALLERGIES No Information ENCOUNTERS Encounter Location Date Diagnosis [facility] [address] [place], [place] [address] [facility] [address] [place], [place] [address] [facility] [address] [facility] [place], [place] [address] [facility] [address] [place], [place] [address] [facility] [address] [place], [place] [address] [facility] [address] [place], Feb, Bipolar [place] [address] F31.9 [facility] [address] [place], Jan, [place] [address] F31.9 [facility] [address] [place], Jan, Bipolar 1 [place] [address] F31.9 [facility] [address] [facility] Jan, [place] [address] [facility] [address] [place], Jan, [place]ipolar 1 [place] [address] F31.9 and Anxiety F41.9 [facility] [address] [facility] [place], [place] [address] 14 Dec, 2018 [facility] [place] [address] [facility] [address] [place], Dec, Bipolar 1 [place] [address] F31.9 ; Anxiety F41.9 ; Screening for colon cancer Z12.11 ; Need for hepatitis C screening test Z11.59 and Screening, lipid Z13.220 [place] [facility] [address] [place], Nov, Bipolar 1 [place] [address] F31.9 [facility] [address] [place] [address] Nov, [place] [address] [facility] [address] [facility] [place], Nov, [place]ipolar 1 [place] [address] F31.9 [facility] [address] [facility] [place], Oct, [place] 1 [place] [address] F31.9 [place] [facility] [address] Oct, [place]ipolar 1 [place] [address] F31.9 [facility] [address] [facility] [place], Oct, [place]ipolar 1 [place] [address] F31.9 [facility] [address] [facility] [place], [place] [address] [facility] [address] [place] [address] Sep, Bipolar 1 [place] [address] [address]31[address] Sep, [place] [address] [facility] [address] [place] [address] Sep, [place] [address] [facility] [address] [facility] [place], Aug, Bipolar 1 [place] [address] [address]31[address] Aug, [place] [address] Aug, [place] [address] [facility] [address] [place], Jul, [place]ipolar 1 [place] [address] F31.9 [facility] [address] [facility] [place], [place] [address] [facility] [address] [place], Jul, [place]ipolar 1 [place] [address] F31.9 ; BMI 30.0-30.9,adult Z68.30 and Other obesity due to excess calories E66.[address] Jul, [facility] [place] [address] [place] [facility] [address] [place], Jul[place]ipolar 1 [place] [address] F31.9 [facility] [address] [place], Jul, [place]ipolar 1 [place] [address] F31.9 [facility] [address] [facility] Jul, [place] [address] [place] [facility] [address] [place], Jul, Bipolar 1 [place] [address] F31.9 [place] [facility] [address] [place], Jun, [place]ipolar 1 [place] [address] F31.9 [facility] [address] [place], Jun, [place] [address] F31.9 [place] [facility] [address] [place], Jun, Bipolar 1 [place] [address] F31.9 [place] [facility] [address] [place], Jun, Bipolar 1 [place] [address] F31.9 [facility] [address] [facility] Jun, [place] [address] cancer Z12.31 [place] [facility] [address] [place], Jun, Bipolar 1 [place] [address] F31.9 [place] [facility] [address] [place], [place], Bipolar 1 [place] [address] F31.9 [place] [facility] [address] [place], [place] [address] [place] [facility] [address] [place], [place] [address] [place] [facility] [address] [place] [address] [place] [facility] [address] [place] [address] [place] [facility] [address] [place], Apr, Bipolar 1 [place] [address] F31.9 ; Screening for cervical cancer Z12.4 ; Other obesity due to excess calories E66.09 and BMI 30.0-30.9,adult Z68.30 [place] [facility] [address] [place], Apr, Impacted cerumen , [place] [address] ear H61.[address] Apr, [place] [address] [facility] [address] [facility] [place], [place] [address] [facility] [address] [place] [address] [place], Dec, [place]ipolar 1 [place] [address] F31.9 ; Anxiety F41.9 and Screening for cervical cancer Z12.[address] [place], [place] [address] IMMUNIZATIONS No Known Immunizations SOCIAL HISTORY Never Assessed REASON FOR REFERRAL FUNCTIONAL STATUS PLAN OF CARE VITAL SIGNS MEDICATIONS Unknown Medications PROCEDURES No Known procedures RESULTS No Results REASON FOR VISIT transportation Insurance Providers [facility] Member Patient Patient Patient Patient Patient Subscriber Subscriber Subscriber Group Insurance Plan Plan Plan Plan ID Relationship Address Phone Name Date of ID Name Date of No Type Insurance Insurance Insurance Coverage to Subscriber Address Phone Name Dates Case [phone] Case self Deborah [id number] Management [place] 02 Management [facility] [address] [facility] Medicaid [address] [phone] Medicaid self Deborah [id number] Wrap [facility] 56 Wrap [facility] [address] [place] [phone] [place] self Deborah [id number] Essential [place] 47 Essential [place] Plan 1 [place] [address] Plan 1 2 Medical Medical [place] [address] [phone] [place] self Deborah [id number] Ess Plan 1 [id number] 08 Ess Plan 1 [place] 2 Dental [place] 2 [place] [address] [facility] MEDICAL (GENERAL) HISTORY Type Description Date Medical History depression and anxiety. Medical History bipolar Medical History nerve pain. Surgical History 1998 Hospitalization History 1998 Hospitalization History ED visits on several occasions, for mental health issues
--- OUTSIDE RECORDS SUMMARY | 2019-04-10 08:51 | XMS REPORT ---
:1960 Author Organization [facility] Address [address] [place] [address] Care Team Providers Name Role Phone Leonardo Anguiano Unavailable Unavailable PROBLEMS Type Condition ICD9-CM Code [id number] Code Onset Condition SNOMED Code Dates Status Problem BMI Z68.30 Active 590213146 30.0-30.9,adult Problem Other obesity E66.09 Active 679411106 due to excess calories Problem High cholesterol E78.00 Active 35276128 Problem Bipolar 1 F31.9 Active 648330836 disorder Problem Anxiety F41.9 Active 24528948 ALLERGIES No Information ENCOUNTERS Encounter Location Date Diagnosis [facility] [address] [facility], [place] [address] [facility]ly [facility], [facility] [address] [place] [address] Apr, [place] [address] [facility] [address] [facility], [place] [address] [place], [place] [address] [facility] [address] [facility] [address] [place], [place] [address] [facility] [address] [facility] [place], [place] [address] [facility] [address] [place] [address] March, [place] [address] [facility] Resource - [place] [address] [facility] [place], [place] [address] [facility], [facility] [address] [place] [address] [place], [place] [address] [facility] [address] [place] [address] March, [place] [address] [facility] [address] [place], Feb, Bipolar 1 [place] [address] F31.9 [facility] [address] [place], Jan, [place]ipolar 1 [place] [address] F31.9 [facility] [address] [place], Jan, [place]ipolar 1 [place] [address] Jan, [place] [address] [facility] [address] [place], Jan, Bipolar 1 [place] [address] F31.9 and Anxiety F41.9 [facility] [address] [place], [place] [address] Dec, [place] [address] [facility] [address] [place], Dec, Bipolar 1 [place] [address] F31.9 ; Anxiety F41.9 ; Screening for colon cancer Z12.11 ; Need for hepatitis C screening test Z11.59 and Screening, lipid Z13.220 [place] [facility] [address] [place], Nov, Bipolar 1 [place] [address] F31.9 [facility] [address] [facility] Nov, [place] [address] [facility] [address] [place], Nov, Bipolar 1 [place] [address] F31.9 [facility] [address] [place], Oct, Bipolar 1 [place] [address] F31.9 [facility] [address] Oct, [place]ipolar 1 [place] [address] F31.9 [facility] [address] [place], Oct, Bipolar 1 [place] [address] F31.9 [facility] [address] [place], [place] [address] [facility] [address] [facility] Sep, Bipolar 1 [place] [address] F31.9 [facility] [address] [facility] Sep, [place] [address] [facility] [address] [place] [address] Sep, [place] [address] [facility] [address] [place], Aug, Bipolar 1 [place] [address] F31.9 [facility] [address] [facility] Aug, [place], [place] [address] [facility] [address] [facility] Aug, [place] [address] [facility] [address] [place], Jul, Bipolar 1 [place] [address] F31.9 [place] [facility] [address] [place], [place] [address] [place] [facility] [address] [place], Jul, [place]ipolar 1 [place] [address] F31.9 ; BMI 30.0-30.9,adult Z68.30 and Other obesity due to excess calories E66.[address] Jul, [facility] [place] [address] [place] [facility] [address] [place], Jul, Bipolar 1 [place] [address] F31.9 [place] [facility] [address], Jul, Bipolar 1 [place] [address] F31.9 [facility] [address] [facility] Jul, [place] [address] [place] [facility] [address] [place], Jul, Bipolar 1 [place] [address] F31.9 [facility] [address] [place], Jun, Bipolar 1 [place] [address] F31.9 [place] [facility] [address] [place], Jun, Bipolar 1 [place] [address] F31.9 [place] [facility] [address] [place], Jun, Bipolar 1 [place] [address] F31.9 [place] [facility] [address], Jun, Bipolar 1 [place] [address] F31.9 [facility] [address] Jun, [place] [address] cancer Z12.31 [place] [facility] [address] [place], Jun, Bipolar 1 [place] [address] F31.9 [place] [facility] [address] [place], [place], Bipolar 1 [place] [address] F31.9 [place] [facility] [address] [place], [place] [address] [place] [facility] [address] [place], [place] [address] [place] [facility] [address] [facility] [place], [place] [address] [facility] [address] [facility] [place], [place] [address] [place] [facility] [address] [facility] [place], Apr, Bipolar 1 [place] [address] F31.9 ; Screening for cervical cancer Z12.4 ; Other obesity due to excess calories E66.09 and BMI 30.0-30.9,adult Z68.30 [place] [facility] [address] [place] [address] [place], Apr, Impacted cerumen , [place] [address] ear H61.[address] Apr, [place] [address] [facility] [address] [facility] [place], [place] [address] [facility] [address] [place] [address] [place], Dec, Bipolar 1 [place] [address] F31.9 ; Anxiety F41.9 and Screening for cervical cancer Z12.[address] [place], [place] [address] IMMUNIZATIONS No Known Immunizations SOCIAL HISTORY Never Assessed REASON FOR REFERRAL FUNCTIONAL STATUS PLAN OF CARE VITAL SIGNS MEDICATIONS Unknown Medications PROCEDURES No Known procedures RESULTS No Results REASON FOR VISIT Needs call back from our Provider Insurance Providers [facility] Health Member Patient Patient Patient Patient Patient Subscriber Subscriber Subscriber Group Insurance Plan Plan Plan Plan ID Relationship Address Phone Name Date of ID Name Date of No Type Insurance Insurance Insurance Coverage to Subscriber Address Phone Name Dates [place] [phone] [place] self Deborah [id number] Essential [place] 47 Essential [place] Plan [address] [place] [address] Plan 1 2 Medical Medical Case [phone] Case self Deborah [id number] Management [place] 02 Management [place] [facility] [address] [facility] [place]ows [phone] [place] self Deborah [id number] Ess Plan 1 [id number] Ess Plan 1 [place] 2 Dental [place] 2 [place] [address] [employer] Medicaid [id number] Medicaid self Deborah [id number] Wrap [facility] [address] [place] [address] MEDICAL (GENERAL) HISTORY Type Description Date Medical History depression and anxiety. Medical History bipolar Medical History nerve pain. Surgical History 1998 Hospitalization History 1998 Hospitalization History ED visits on several occasions, for mental health issues
--- OUTSIDE RECORDS SUMMARY | 2019-04-10 08:51 | XMS REPORT ---
:1960 Author Organization [facility] Address [address] [place] [address] Care Team Providers Name Role Phone Leonardo Anguiano Unavailable Unavailable PROBLEMS Type Condition ICD9-CM Code [id number] Code Onset Condition SNOMED Code Dates Status Problem BMI Z68.30 Active 747978782 30.0-30.9,adult Problem Other obesity E66.09 Active 931569937 due to excess calories Problem High cholesterol E78.00 Active 44133173 Problem Bipolar 1 F31.9 Active 932002116 disorder Problem Anxiety F41.9 Active 95345566 ALLERGIES No Information ENCOUNTERS Encounter Location Date Diagnosis [facility] [address] [place], [place] [address] [facility] [address] [place], [place] [address] [facility] [address] [facility] [place], [place] [address] [facility] [address] [facility] [place] [address] [facility] Resource - [place] [address] [place], [place] [address] [facility] [address] [facility] [place], [place] [address] [facility] [address] [facility] [place], [place] [address] [facility] [address] [place] [place], Feb, [place] [address] F31.9 [facility] [address] [place] [place], Jan, [place] [address] F31.9 [facility] [address] [place], Jan, Bipolar 1 [place] [address] F31.9 [facility] [address] [facility] Jan, [place] [address] [facility] [address] [place] [place], Jan, [place]ipolar 1 [place] [address] F31.9 and Anxiety F41.9 [facility] [address] [place], [place] [address] Dec, [place] [address] [facility] [address] [facility] [place], Dec, Bipolar 1 [place] [address] F31.9 ; Anxiety F41.9 ; Screening for colon cancer Z12.11 ; Need for hepatitis C screening test Z11.59 and Screening, lipid Z13.220 [place] [facility] [address] [place] [place], Nov, Bipolar 1 [place] [address] F31.9 [facility] [address] [facility] Nov, [place] [address] [facility] [address] [place], Nov, Bipolar 1 [place] [address] F31.9 [facility] [address] [facility] [place], Oct, Bipolar 1 [place] [address] F31.9 [facility] [address] [facility] [address] Oct, [place]ipolar 1 [place] [address] F31.9 [facility] [address] [place], Oct, [place]ipolar 1 [place] [address] F31.9 [facility] [address] [place] [place], [place] [address] [facility] [address] [facility] Sep, Bipolar 1 [place] [address] F31.9 [facility] [address] [facility] Sep, [place] [address] [facility] [address] [facility] Sep, [place] [address] [facility] [address] [facility] [place], Aug, Bipolar 1 [place] [address] F31.9 [facility] [address] [facility] Aug, [place] [address] [place] 090[address] [facility] Aug, [place] [address] [place] [facility] [address] [place], Jul, Bipolar 1 [place] [address] F31.9 [place] [facility] [address] [place], [place] [address] [place] [facility] [address] [place], Jul, Bipolar 1 [place] [address] F31.9 ; BMI 30.0-30.9,adult Z68.30 and Other obesity due to excess calories E66.[address] Jul, [facility] [address] [place] [facility] [address] [place], Jul, Bipolar 1 [place] [address] F31.9 [place] [facility] [address] [place], Jul, Bipolar 1 [place] [address] F31.9 [facility] [address] [facility] Jul, [place] [address] [place] [facility] [address] [place], Jul, Bipolar 1 [place] [address] F31.9 [place] [facility] [address] [place], Jun, Bipolar 1 [place] [address] F31.9 [place] [facility] [address] [place], Jun, Bipolar 1 [place] [address] F31.9 [place] [facility] [address] [place], Jun[place] Bipolar 1 [place] [address] F31.9 [place] [facility] [address] [place], Jun, Bipolar 1 [place] [address] F31.9 [facility] [address] [facility] Jun, Screening for breast [place], [place] [address] cancer Z12.31 [place] [facility] [address] [place], Jun, Bipolar 1 [place] [address] F31.9 [place] [facility] [address] [place], [place]ipolar 1 [place] [address] F31.9 [place] [facility] [address] [place], [place] [address] [place] [facility] [address] [place], [place] [address] [place] [facility] [address] [place], [place] [address] [place] [facility] [address] [place], [place] [address] [place] [facility] [address] [place], [address] [place], 2018 [place] 1 [place] [address] F31.9 ; Screening for cervical cancer Z12.4 ; Other obesity due to excess calories E66.09 and BMI 30.0-30.9,adult Z68.[address] [place], Apr, [place] [address] ear H61.[address] Apr, [place] [address] [facility] [address] [facility] [place], [place] [address] [facility] [address] [place] [address] [place], Dec, [place] 1 [place] [address] F31.9 ; Anxiety F41.9 and Screening for cervical cancer Z12.[address], [place] [address] IMMUNIZATIONS No Known Immunizations SOCIAL HISTORY Never Assessed REASON FOR REFERRAL FUNCTIONAL STATUS PLAN OF CARE VITAL SIGNS MEDICATIONS Unknown Medications PROCEDURES No Known procedures RESULTS No Results REASON FOR VISIT Pt update Insurance Providers [facility] Health Member Patient Patient Patient Patient Patient Subscriber Subscriber Subscriber Group Insurance Plan Plan Plan Plan ID Relationship Address Phone Name Date of ID Name Date of No Type Insurance Insurance Insurance Coverage to Subscriber Address Phone Name Dates [place] [phone] [place] self Deborah [id number] Ess Plan 1 [id number] Ess Plan 1 [place] 2 Dental [place] [address] [place] [address] [employer] Medicaid [id number] Medicaid self Deborah [id number] [facility] [address] [facility] [address] [place] [phone] [place] self Deborah [id number] Essential [place] 47 Essential [place] Plan 1 2 [place] [address] Plan 1 2 Medical Medical Case [phone] Case self Deborah [id number] Management [place] 02 Management [place] Counts include 234 beds at the [facility] [address] [facility] MEDICAL (GENERAL) HISTORY Type Description Date Medical History depression and anxiety. Medical History bipolar Medical History nerve pain. Surgical History 1998 Hospitalization History 1998 Hospitalization History ED visits on several occasions, for mental health issues
--- NOTE | 2019-04-10 09:50 | ED ---
GI/ HPI - HPI Summary HPI Summary: Patient is a 58 y/o F presenting to ED with complaints of SOB, chest pain, dizziness, nausea, ESTRADA. Chest pain onset last night, 04/09/19, patient reports that the chest pain is "better". She states that chest pain is left sided and has some radiation to her left arm. Chest pain is described as a tightness. Dizziness is described as a room spinning. Dizziness, nausea, and ESTRADA are still present. PMHx of bipolar 1, patient states that she was started on Depakote three weeks ago, 500 mg. This was increased this week to 1000 mg by her psychiatrist. She states that 1.5 days after the dosage increase, she began to experience vaginal bleeding, which lasted 3 days and has since resolved. Blood is described as dark. Patient underwent menopause eight years ago. No Hx of HTN. Fever is denied. Patient notes that she has also been placed on gabapentin and prozac previously. While in triage, it is reported that the patient had complaints of abdominal pain, this was denied in the room. SI/HI are denied, FMHx of suicide. On triage, pain is rated 4/10, nothing is noted aggravate/ alleviate Sx. BP 117/86. is present in the room. Home medications and allergies are reviewed. Her psychiatrist is Dr. Anika Amaya in [place], [place]. Home Medications Medication Instructions Recorded Confirmed Type Gabapentin CAP(*) [Neurontin 300 600 mg PO TID 07/11/17 04/10/19 History CAP(*)] Divalproex Sodium [Divalproex 1,000 mg PO DAILY 04/10/19 04/10/19 History Sodium ER] - History of Current Complaint Chief Complaint: EDAllergicReaction Time Seen by Provider: 04/10/19 09:42 Stated Complaint: ALLERGIC REACTION/SICK/SOB PER PT Hx Obtained From: Patient Hx Last Menstrual Period: 8 yrs ago Onset/Duration: Started Days Ago - chest pain onset yesterday, 04/09/19, Atraumatic, Still Present Timing: Constant, Lasting Days - chest pain onset yesterday, 04/09/19 Severity: Moderate - 4/10 Current Severity: Moderate - 4/10 Vaginal Bleeding Description: Dark Red - now resolved Number of Pads per Day: 2 Pain Intensity: 4 Location of Pain: Other - CHEST PAIN ENDORSED, ABDOMINAL PAIN DENIED Pain Characteristics: Other: - chest pain is tightness Associated Signs and Symptoms: Positive: Dizziness, Nausea, Chest Pain, Other: - POSITIVE - ESTRADA, SOB. Negative: Fever, Abdominal Pain Additional Signs & Symptoms: Positive: Vaginal Bleeding - 8 years post menopausal, first post menopausal bleeding. Aggravating Factor(s): Nothing Alleviating Factor(s): Nothing - Allergy/Home Medications Allergies/Adverse Reactions: Allergies Allergy/AdvReac Type Severity Reaction Status Date / Time No Known Allergies Allergy Verified 04/10/19 08:44 Home Medications: Home Medications Divalproex Sodium [Divalproex Sodium ER] 1,000 mg PO DAILY 04/10/19 [History Confirmed 04/10/19] PMH/Surg Hx/FS Hx/Imm Hx Previously Healthy: No Endocrine/Hematology History: Denies: Hx Diabetes Cardiovascular History: Denies: Hx Hypertension History: Denies: Hx Renal Disease Sensory History: Denies: Hx Deafness Psychiatric History: Reports: Hx Bipolar Disorder - bipolar I - Surgical History Surgery Procedure, Year, and Place: "tummy tuck", breast reduction Infectious Disease History: No Infectious Disease History: Denies: Traveled Outside the [place] in Last 30 Days - Family History Known Family History: Positive: Other - FMHX of suicide Negative: Hypertension - Social History Lives: With Family Alcohol Use: None Hx Substance Use: Yes Substance Use Type: Reports: Marijuana Hx Tobacco Use: No Smoking Status (MU): Never Smoked Tobacco Review of Systems Negative: Fever Positive: Chest Pain Positive: Shortness Of Breath Positive: Nausea. Negative: Abdominal Pain Positive: other - dark vaginal bleeding that has now resolved, 8 year post menopausal Musculoskeletal: Negative Skin: Negative Neurological: Other - POSITIVE - DIZZINESS Positive: Headache Psychological: Other - NEGATIVE - HI/SI All Other Systems Reviewed And Are Negative: Yes Physical Exam - Summary Physical Exam Summary: Appearance: Ill-appearing, moderate pain distress, well-nourished Skin: Warm, color reflects adequate perfusion, dry Head: Normal Head/Face inspection, atraumatic Eyes: Conjunctiva clear, PERRL, EOMI, no nystagmus ENT: Normal inspection, TM's clear, Pharynx clear Neck: Supple, no nodes, no JVD Respiratory: Lungs clear, normal breath sounds, no respiratory distress Cardio: RRR, No murmur, pulses normal, brisk capillary refill Abdomen: Soft, nontender Bowel sounds: Present Musculoskeletal: Strength Intact/ROM intact, no calf tenderness, no edema. Psychological: Normal Neuro: Alert, muscle tone normal, no focal deficit Triage Information Reviewed: Yes Vital Signs On Initial Exam: Initial Vitals Temp Pulse Resp BP Pulse Ox 98 F 87 16 117/86 100 04/10/19 08:38 04/10/19 08:38 04/10/19 08:38 04/10/19 08:38 04/10/19 08:38 Vital Signs Reviewed: Yes Diagnostics - Vital Signs Vital Signs Temp Pulse Resp BP Pulse Ox 04/10/19 08:38 98 F 87 16 117/86 100 - Laboratory Result Diagrams: 04/10/19 11:33 04/10/19 11:33 Lab Statement: Any lab studies that have been ordered have been reviewed, and results considered in the medical decision making process. - Ultrasound No standard instances Ultrasound Interpretation Completed By: Radiologist Summary of Ultrasound Findings: US Transvaginal: Endometrial thickness of 0.3 cm consistent with endometrial atrophy. ED physician has reviewed this report. Re-Evaluation - Re-Evaluation First Eval Re-Evaluation Time: 12:39 Change: Unchanged Comment: I discussed the results of the transvaginal US with the patient. Second Eval Re-Evaluation Time: 15:35 Change: Improved Comment: The patient states she is feeling better. Valproic acid level is in the normal range. IV hydration and zofran helped pt. We discussed discharge home. GIGU Course/Dx - Course Course Of Treatment: Patient is a 58 y/o F presenting to ED with complaints of SOB, chest pain, dizziness, nausea, ESTRADA. Chest pain onset last night, 04/09/19, patient reports that the chest pain is "better". She states that chest pain is left sided and has some radiation to her left arm. Chest pain is described as a tightness. Dizziness is described as a room spinning. Dizziness, nausea, and ESTRADA are still present. PMHx of bipolar 1, patient states that she was started on Depakote three weeks ago, 500 mg. This was increased this week to 1000 mg by her psychiatrist. She states that 1.5 days after the dosage increase, she began to experience vaginal bleeding, which lasted 3 days and has since resolved. Blood is described as dark. Patient underwent menopause eight years ago. No Hx of HTN. Fever is denied. Patient notes that she has also been placed on gabapentin and prozac previously. While in triage, it is reported that the patient had complaints of abdominal pain, this was denied in the room. SI/HI are denied. Her psychiatrist is Dr. Anika Amaya in [place], [place]. On physical exam, ill-appearing and moderate pain distress is noted, otherwise normal. In the ED course, the patient was administered 2L Ns and Zofran 8mg. Blood work reveals no significant abnormalities except for lactic acid of 2.1. Toxicology report reveals Valproic acid of 70.0. (normal) Transvaginal US reveals endometrial thickness of 0.3cm consistent with endometrial atrophy. Pt was concerned that her constellation of symptoms was due to the increased dosage of the depakote. The level is in the therapeutic range, however since pt feels her symptoms are worse on the increased dose, and she is not suicidal or manic in presentation at this time, and has the support of her , I have advised her that she may go back to her previous dose, but she must contact her psychiatrist in the next few days to discuss management. Pt's transvaginal ultrasound is not concerning for a malignant cause of post menopausal bleeding, however she is advised she needs definite follow up for this, and that this is not a typical side effect of depakote, but rather a separte entity.She is diagnosed with medication side effect, dizziness, and post-menopausal vaginal bleeding. She is provided with instructions for valproic acid and dysfunctional uterine bleeding.(There are no patient education materials on post menopausal bleeding). She is prescribed Zofran. Following discharge home, she will follow up with her PCP Dr. Lisa Dumas in 2 days regarding the post menopausal bleeding, as well as her psychiatrist Dr. Anika Amaya after lowering her Depakote dosage.We discussed all reports and findings, and the patient agrees with the plan. She understands the need for return to the ED for any new or worsening symptoms. - Diagnoses Differential Diagnoses - Female: Adverse Drug Effect, DVB/Menopause, Neoplasm, Vaginitis Provider Diagnoses: Medication side effect, Dizziness, Post-menopausal bleeding Discharge - Sign-Out/Discharge Documenting (check all that apply): Patient Departure - Patient will be dsicharged home. Patient Received Moderate/Deep Sedation with Procedure: No - Discharge Plan Condition: Stable Disposition: HOME Prescriptions: Ondansetron ODT TAB* [Zofran 4 MG Odt TAB*] 4 mg PO Q6H PRN #20 tab.odt PRN Reason: Nausea Patient Education Materials: Valproic Acid (By mouth), Dysfunctional Uterine Bleeding (ED) Referrals: Lisa Dumas MD [Medical Doctor] - 2 Days (for post menopausal bleeding ) Additional Instructions: We did not have specific discharge instructions about post menopausal bleeding so we gave you "dysfunctional uterine bleeding". We did do a transvaginal ultrasound that showed atrophy at did not show widened uterine stripe, but he should definitely have COLOR FINISHER follow-up about this first episode of post menopausal bleeding. We have given you that name and number of the [facility] [employer]UCATIONAL INTERPRETER doctor that saw on-call and you should call and arrange an appointment as soon as possible for this bleeding. We gave you 2 L of fluid and your symptoms of dizziness improved. Her heart rate was elevated prior to the fluids, and it decreased to normal after the IV fluids. You related your other symptoms of dizziness, nausea, chest discomfort and SOB, all to increasing the dose of the Depakote. The Depakote level was not toxic. It was in the normal range. Because you felt better on the lower dose Dr. Gamboa recommends that you return to the 500 mg daily and discuss it with Dr. Anika Amaya, your psychiatrist as soon as possible. Return to the emergency department for any new or worsening symptoms - Billing Disposition and Condition Condition: STABLE Disposition: Home - Attestation Statements Document Initiated by Dayron: Yes Documenting Scribe: Sai Gross Provider For Whom Dayron is Documenting (Include Credential): La Nena Gamboa [place] Attestation: Sai Peng, scribed for La Nena Gamboa on 04/13/19 at 0115. Scribe Documentation Reviewed: Yes Provider Attestation: The documentation as recorded by the Sai mehta accurately reflects the service I personally performed and the decisions made by La Nena haile Status of [place] Document: Viewed
[2019-04-10] MEDS ORDERED: Ondansetron INJ* 2 MG/ML VIAL IV ONE (10:39)
[2019-04-10] MEDS ORDERED: NS 0.9% 1000 ML** 1,000 ML IV ONE ×2 (10:39→12:45)
[2019-04-10 11:50] LABS: ABS Basophils 0.1 10^3/ul (0-0.2); ABS Lymphocytes 0.9 10^3/ul (1.0-4.8); ABS Monocytes 0.3 10^3/ul (0-0.8); ABS Neutrophils 4.3 10^3/ul (1.5-7.7); Eosinophil % 0.9 %; Hematocrit 39 % (35-47); Hemoglobin 13.1 g/dL (12.0-16.0); Lymphocyte % 16.6 %; Mean Corpuscular HGB Conc 34 g/dL (31-36); Mean Corpuscular Hemoglobin 33 pg (27-31); Mean Corpuscular Volume 97 fL (80-97); Mean Platelet Volume 8.9 fL (7.4-10.4); Platelet Count 230 10^3/uL (150-450); Red Blood Count 4.02 10^6 /uL (3.70-4.87); Red Cell Distribution Width 13 % (10.5-15); White Blood Count 5.7 10^3/uL (3.5-10.8)
[2019-04-10 11:59] LABS: Albumin 4.4 g/dL (3.2-5.2); Albumin/Globulin Ratio 1.4 (1-3); BUN/Creatinine Ratio 16.9 (8-20); Calcium 9.6 mg/dL (8.6-10.3); EGFR African American 85.7 (>60); EGFR Non-African American 70.9 (>60); Globulin 3.1 g/dL (2-4); Potassium 4.1 mmol/L (3.5-5.0); Total Bilirubin 0.3 mg/dL (0.2-1.0); Total Protein 7.5 g/dL (6.4-8.9)
[2019-04-10 16:06] VITALS: BP 94/76
== END 2019-04-10 16:06 | disposition home or self-care (01) ==
LOC: ED 08:31
DX: T42.6X5A Adverse effect of other antiepileptic and sedative-hypnotic drugs, initial encounter (principal); Y92.9 Unspecified place or not applicable; R42 Dizziness and giddiness; N95.0 Postmenopausal bleeding; R06.02 Shortness of breath; R07.9 Chest pain, unspecified; R11.0 Nausea; R51 Headache; F31.9 Bipolar disorder, unspecified
CPT/HCPCS: 36415; 76830; 80053; 80164; 83605; 85025; 85610; 85730; 96361; 96374; 99282; J2405

== ENCOUNTER 2019-04-25 19:34 | Inpatient (IN) | payer OTHER ==
--- OUTSIDE RECORDS SUMMARY | 2019-04-25 19:50 | XMS REPORT ---
:1960 Author Organization [facility] Address [address] [place] [address] Care Team Providers Name Role Phone Leonardo Anguiano Unavailable Unavailable PROBLEMS Type Condition ICD9-CM Code [id number] Code Onset Condition SNOMED Code Dates Status Problem BMI Z68.30 Active 160383482 30.0-30.9,adult Problem Other obesity E66.09 Active 691786241 due to excess calories Problem High cholesterol E78.00 Active 63256103 Problem Bipolar 1 F31.9 Active 674613486 disorder Problem Anxiety F41.9 Active 29634334 ALLERGIES No Information ENCOUNTERS Encounter Location Date Diagnosis [facility] [address] [facility], [place] [address] Apr, [place] [address] [facility] [address] [facility], Apr, Bipolar 1 [place] [address] F31.9 ; Anxiety F41.9 ; Screening for colon cancer Z12.11 and Breast cancer screening Z12.[address] Apr, [place]ipolar 1 [place] [address] [address] [place], [place] [address] [place], [place] [address] [place], [place] [address] [facility] [address] [facility], [place] [address] [place] [address] [facility] [place], Bipolar 1 disorder [place] [address] F31.9 [place] [facility] [address] [place], [place] [address] [place] [facility] [address] [facility] [place], [place] [address] [facility] [address] [place], [place] [address] [place], [facility] [place] [address] [facility] [address] [facility] [address] [place], [place] [address] [place] [facility] [address] [facility] [place], [place] [address] [facility] [address] [facility] [place] [address] [facility] - [place] [address] [facility] [address], [place] [address] [facility] [address] [facility] [place], [place] [address] [place] [facility] [address] [facility] [place], [place] [address] [facility] [address] [place], Feb, Bipolar 1 [place] [address] F31.9 [facility] [address] [place] [address] [place], Jan, Bipolar 1 [place] [address] F31.9 [facility] [address] [place] [address] [place], Jan, Bipolar 1 [place] [address] F31.9 [place] [address] [facility] Jan, [place] [address] [place] [facility] [address] [place], Jan, Bipolar 1 [place] [address] F31.9 and Anxiety F41.9 [place] [facility] [address] [place], [place] [address] Dec, [facility] [place] [address] [facility] [address] [place], Dec, Bipolar 1 [place] [address] F31.9 ; Anxiety F41.9 ; Screening for colon cancer Z12.11 ; Need for hepatitis C screening test Z11.59 and Screening, lipid Z13.220 [place] [facility] [address] [place], Nov, Bipolar 1 [place] [address] F31.9 [place] [address] [facility] Nov, [place] [address] [facility] [address] [place], Nov, Bipolar 1 [place] [address] F31.9 [place] [facility] [address] [place], Oct, Bipolar 1 [place] [address] F31.9 [place] [facility] [address] [facility] [address] Oct, Bipolar 1 [place] [address] F31.9 [place] [facility] [address] [place], Oct, Bipolar 1 [place] [address] [address] [facility] [address] [place], [place] [address] [facility] [address] [facility] Sep, Bipolar 1 [place] [address] F31.9 [facility] [address] [facility] Sep, [place] [address] [facility] [address] [facility] Sep, [place] [address] [facility] [address] [place], Aug, Bipolar 1 [place] [address] F31.9 [facility] [address] [facility] Aug, [place] [address] Aug, [place] [address] [facility] [address] [place], Jul, Bipolar 1 [place] [address] F31.9 [place] [facility] [address] [place], [place] [address] [facility] [address] [place], Jul, Bipolar 1 [place] [address] F31.9 ; BMI 30.0-30.9,adult Z68.30 and Other obesity due to excess calories E66.[address] Jul, [facility] [place] [address] [facility] [address] [place], Jul, Bipolar 1 [place] [address] F31.9 [place] [facility] [address] [place], Jul, Bipolar 1 [place] [address] F31.9 [facility] [address] [facility] Jul, [place] [address] [place] [facility] [address] [place], Jul[place] Bipolar 1 [place] [address] F31.9 [place] [facility] [address] [place], Jun, Bipolar 1 [place] [address] F31.9 [place] [facility] [address] [place], Jun, Bipolar 1 [place] [address] F31.9 [place] [facility] [address] [place], Jun, Bipolar 1 [place] [address] F31.9 [place] [facility] [address] [place], Jun, Bipolar 1 [place] [address] F31.9 [place] [address] [facility] Jun, [place] [address] cancer Z12.31 [place] [facility] [address] [place], Jun, Bipolar 1 [place] [address] F31.9 [place] [facility] [address] [place], [place], Bipolar 1 [place] [address] F31.9 [place] [facility] [address] [place], [place] [address] [place] [facility] [address] [place], [place] [address] [place] [facility] [address] [place], [place] [address] [place] [facility] [address] [place], [place] [address] [place] [facility] [address] [place], Apr, Bipolar 1 [place] [address] F31.9 ; Screening for cervical cancer Z12.4 ; Other obesity due to excess calories E66.09 and BMI 30.0-30.9,adult Z68.30 [place] [facility] [address] [place], Apr, Impacted cerumen [place] [address] ear H61.22 [facility] [address] [facility] Apr, [place] [address] [place] [facility] [address] [place], [place] [address] [place] [facility] [address] [place], Dec, Bipolar 1 [place] [address] F31.9 ; Anxiety F41.9 and Screening for cervical cancer Z12.4 [place] [facility] [address] [place], [place] [address] IMMUNIZATIONS No Known Immunizations SOCIAL HISTORY Never Assessed REASON FOR REFERRAL FUNCTIONAL STATUS PLAN OF CARE Activity Details Follow Up 6 months Reason:physical/ wellness Pending Test FECAL GLOBIN BY IMMUNOCHEMISTRY VITAL SIGNS Temperature 96.0 degrees Fahrenheit 2019-04-20 Heart Rate 18 2019-04-20 Weight 173.0 2019-04-20 Height 64.0 in 2019-04-20 BMI 29.69 kg/m2 2019-04-20 Oximetry 99 % 2019-04-20 Blood pressure systolic 120 mm Hg 2019-04-20 Blood pressure diastolic 81 mm Hg 2019-04-20 MEDICATIONS Medication Instructions Dosage Frequency Start End Duration Status Date Date MiraLax - Orally daily at Not-Takin night before bed g with orange juice Depakote ER Orally daily take 1 24h 05 April, Active 500 mg capsule 2018 Advil PM Orally Once a 2 tablets 24h Active 200-38 MG day at bedtime as needed Gabapentin 300 Orally 3 times a 2 caps 30 Active MG day. Vitamin B Active Complex PROCEDURES Procedure Date Ordered Result Body Site Brief emotional/behavioral assessment April 20, 2019 BODY MASS INDEX DOCD April 20, 2019 SMOKING + 2ND HAND ASSESSED April 20, 2019 Oxygen saturation results documented and reviewed April 20, 2019 BLOOD PRESSURE, MEASURED April 20, 2019 RESULTS No Results REASON FOR VISIT follow up MOOD , [id number] Insurance Providers [facility] Member Patient Patient Patient Patient Patient Subscriber Subscriber Subscriber Group Insurance Plan Plan Plan Plan ID Relationship Address Phone Name Date of ID Name Date of No Type Insurance Insurance Insurance Coverage to Subscriber Address Phone Name Dates Medicaid [address] [phone] Medicaid self Deborah [id number] Wrap [facility] [address] [place] [address] [place] [phone] [place] self Deborah [id number] Essential [place] [address] [place] Plan [address] [place] [address] Plan 1 2 Medical Medical Case [phone] Case self Deborah [id number] Management [place] [address] [place] [facility] [address] Community [place] [address] [phone] [place] self Deborah [id number] Ess Plan [id number] Ess Plan 1 [place] [address] [place] [address] [place] [address] [facility] MEDICAL (GENERAL) HISTORY Type Description Date Medical History depression and anxiety. Medical History bipolar Medical History nerve pain. Surgical History 1998 Hospitalization History 1998 Hospitalization History ED visits on several occasions, for mental health issues
--- OUTSIDE RECORDS SUMMARY | 2019-04-25 19:51 | XMS REPORT ---
:1960 Author Organization [facility] Address [address] [place] [address] Care Team Providers Name Role Phone Leonardo Anguiano Unavailable Unavailable PROBLEMS Type Condition ICD9-CM Code [id number] Code Onset Condition SNOMED Code Dates Status Problem BMI Z68.30 Active 887714044 30.0-30.9,adult Problem Other obesity E66.09 Active 183424153 due to excess calories Problem High cholesterol E78.00 Active 89820517 Problem Bipolar 1 F31.9 Active 611871797 disorder Problem Anxiety F41.9 Active 94263089 ALLERGIES No Information ENCOUNTERS Encounter Location Date Diagnosis [facility] [address] [facility], [place] [address] [facility] [address] [place] [address] Apr, [place] [address] [facility] [address] [facility] March, [place] [address] [facility] [address] [facility] March, [place] [address] March, [place] [address] [facility] [address] [facility], [place] [address] [facility] [address] [facility] March, Bipolar 1 [place] [address] F31.9 [facility] [address] [facility], [place] [address] [facility] [address] [facility] March, [place] [address] [facility] [address] [facility], [place] [address] March, [facility] Medical [place] [address] [facility] [address] [facility] [address] March, [place] [address] [place] [facility] [address] [facility] March, [place] [address] [facility] [address] [facility] March, [place] [address] [facility] [place] [address] [facility] [place], [place] [address] [facility] [address] [facility] March, [place] [address] [facility] [address] [place] [address] March, [place] [address] [facility] [address] [place], Feb, Bipolar 1 [place] [address] F31.9 [facility] [address] [place], Jan, Bipolar 1 [place] [address] F31.9 [facility] [address] [facility] [place], Jan, Bipolar 1 [place] [address] F31.9 [facility] [address] [facility] Jan, [place] [address] [place] [facility] [address] [place], Jan, Bipolar 1 [place] [address] F31.9 and Anxiety F41.9 [facility] [address] [place], [place] [address] Dec, [facility] Medical [place] [address] [facility] [address] [place], Dec, Bipolar 1 [place] [address] F31.9 ; Anxiety F41.9 ; Screening for colon cancer Z12.11 ; Need for hepatitis C screening test Z11.59 and Screening, lipid Z13.220 [place] [facility] [address] [place], Nov, Bipolar 1 [place] [address] F31.9 [facility] [address] [facility] Nov, [place] [address] [place] [facility] [address] [place], Nov, Bipolar 1 [place] [address] F31.9 [facility] [address] [place], Oct, Bipolar 1 [place] [address] F31.9 [place] [facility] [address] Oct, [place]ipolar 1 [place] [address] F31.9 [place] [facility] [address] [place], Oct, Bipolar 1 [place] [address] F31.9 [place] [facility] [address] [place], [place] [address] [facility] [address] [facility] Sep, [place]ipolar 1 [place] [address] F31.9 [facility] [address] [facility] Sep, [place] [address] [facility] [address] [facility] Sep, [place] [address] [facility] [address] [place], Aug, Bipolar 1 [place] [address] F31.9 [facility] [address] [facility] Aug, [place] [address] [facility] [address] [facility] Aug, [place], [place] [address] [facility] [address] [place], Jul, Bipolar 1 [place] [address] F31.9 [place] [facility] [address] [place], [place] [address] [facility] [address] [place], Jul, Bipolar 1 [place] [address] F31.9 ; BMI 30.0-30.9,adult Z68.30 and Other obesity due to excess calories E66.[address] Jul, [place] [address] [place] [facility] [address] [place], Jul, Bipolar 1 [place] [address] F31.9 [place] [facility] [address] [place], Jul, Bipolar 1 [place] [address] F31.9 [facility] [address] [facility] Jul, [place] [address] [facility] [address] [place], Jul, Bipolar 1 [place] [address] F31.9 [place] [facility] [address] [place], Jun, Bipolar 1 [place] [address] F31.9 [place] [facility] [address] [place], Jun, Bipolar 1 [place] [address] F31.9 [place] [facility] [address] [place], Jun, Bipolar 1 [place] [address] F31.9 [facility] [address] [place], Jun, Bipolar 1 [place] [address] F31.9 [facility] [address] [facility] Jun, [place] [address] cancer Z12.31 [place] [facility] [address] [place], Jun, Bipolar 1 [place] [address] F31.9 [place] [facility] [address] [place], May[place] Bipolar 1 [place] [address] F31.9 [place] [facility] [address] [place], [place] [address] [place] [facility] [address] [place], [place] [address] [place] [facility] [address] [place], [place] [address] [place] [facility] [address] [place], [place] [address] [facility] [address] [place] [address] [place], Apr, Bipolar 1 [place] [address] F31.9 ; Screening for cervical cancer Z12.4 ; Other obesity due to excess calories E66.09 and BMI 30.0-30.9,adult Z68.30 [place] [facility] [address] [facility] [place], Apr, Impacted cerumen [place] [address] ear H61.22 [facility] [address] [facility] Apr, [place] [address] [place] [facility] [address] [facility] [place], [place] [address] [facility] [address] [facility] [place], Dec, Bipolar 1 [place] [address] F31.9 ; Anxiety F41.9 and Screening for cervical cancer Z12.4 [place] [facility] [address] [place], [place] [address] IMMUNIZATIONS No Known Immunizations SOCIAL HISTORY Never Assessed REASON FOR REFERRAL FUNCTIONAL STATUS PLAN OF CARE VITAL SIGNS MEDICATIONS Unknown Medications PROCEDURES No Known procedures RESULTS No Results REASON FOR VISIT RHIO Alert [facility] Insurance Providers [facility] Member Patient Patient Patient Patient Patient Subscriber Subscriber Subscriber Group Insurance Plan Plan Plan Plan ID Relationship Address Phone Name Date of ID Name Date of No Type Insurance Insurance Insurance Coverage to Subscriber Address Phone Name Dates Meliton MCKN[phone] [employer] self Deborah [id number] [place] [address] [place] [id number] Plan 1 2 Medical Medical Medicaid [id number] [phone] Medicaid self Deborah [id number] Wrap [facility] [address] [place] [id number] Case [phone] Case self Deborah [id number] Management [employer] 02 Management [place] [facility] [address] [facility] [place] [phone] [employer] self Deborah [id number] Ess Plan 1 [id number] Ess Plan 1 [place] [address] [place] [address] [place] [address] [employer] MEDICAL (GENERAL) HISTORY Type Description Date Medical History depression and anxiety. Medical History bipolar Medical History nerve pain. Surgical History 1998 Hospitalization History 1998 Hospitalization History ED visits on several occasions, for mental health issues
--- OUTSIDE RECORDS SUMMARY | 2019-04-25 19:51 | XMS REPORT ---
:1960 Author Organization [facility] Address [address] [place] [address] Care Team Providers Name Role Phone Leonardo Anguiano Unavailable Unavailable PROBLEMS Type Condition ICD9-CM Code EKT71-OH Code Onset Condition SNOMED Code Dates Status Problem BMI Z68.30 Active 557768155 30.0-30.9,adult Problem Other obesity E66.09 Active 998836093 due to excess calories Problem High cholesterol E78.00 Active 98888545 Problem Bipolar 1 F31.9 Active 208480340 disorder Problem Anxiety F41.9 Active 79304658 ALLERGIES No Information ENCOUNTERS Encounter Location Date Diagnosis [facility] [address] [facility], [place] [address] [facility] [address] [place] [address] Apr, [place] [address] [facility] [address] [facility], [place] [address] [facility] [address] [place] [address] March, Bipolar 1 [place] [address] F31.9 [facility] [address] [place], [place] [address] [facility] [address] [facility] March, [place] [address] [facility] [address] [facility], [place] [address] March, [facility] [place] [address] [facility] [address] [facility] [address] March, [place] [address] [facility] [address] [place] [address] March, [place] [address] [facility] [address] [facility] [place], [place] [address] [facility] [place] [address] [facility] March, [place] [address] [place] [facility] [address] [facility] [place], [place] [address] [facility] [address] [facility] March, [place] [address] [facility] [address] [place], Feb, Bipolar 1 [place] [address] F31.9 [facility] [address] [place], Jan, Bipolar 1 [place] [address] F31.9 [facility] [address] [facility] [place], Jan, Bipolar 1 [place] [address] F31.9 [facility] [address] [facility] Jan, [place] [address] [facility] [address] [place], Jan, Bipolar 1 [place] [address] F31.9 and Anxiety F41.9 [facility] [address] [place], [place] [address] Dec, [place] [address] [facility] [address] [place], Dec, Bipolar 1 [place] [address] F31.9 ; Anxiety F41.9 ; Screening for colon cancer Z12.11 ; Need for hepatitis C screening test Z11.59 and Screening, lipid Z13.220 [facility] [address] [place], Nov, Bipolar 1 [place] [address] F31.9 [facility] [address] [facility] Nov, [place] [address] [place] [facility] [address] [place], Nov[place] Bipolar 1 [place] [address] F31.9 [facility] [address] [place], Oct, [place]ipolar 1 [place] [address] F31.9 [facility] [address] Oct, [place]ipolar [place] [address] F31.9 [place] [facility] [address] [place], Oct, Bipolar 1 [place] [address] F31.9 [facility] [address] [place], [place] [address] [facility] [address] [facility] Sep, [place]ipolar 1 [place] [address] F31.9 [facility] [address] [facility] Sep, [place] [address] [facility] [address] [facility] Sep, [place] [address] [facility] [address] [place], Aug, Bipolar 1 [place] [address] Aug, [place] [address] Aug, [place] [address] [facility] [address] [place], Jul, Bipolar 1 [place] [address] F31.9 [facility] [address] [place], [place] [address] [facility] [address] [place], Jul, Bipolar 1 [place] [address] F31.9 ; BMI 30.0-30.9,adult Z68.30 and Other obesity due to excess calories E66.[address] Jul, [place] [address] [place] [facility] [address] [place], Jul, Bipolar 1 [place] [address] F31.9 [place] [facility] [address] [place], Jul, Bipolar 1 [place] [address] F31.9 [facility] [address] [facility] Jul, [place] [address] [facility] [address] [place], Jul, Bipolar 1 [place] [address] F31.9 [place] [facility] [address] [place], Jun, Bipolar 1 [place] [address] F31.9 [place] [facility] [address] [place], Jun, Bipolar 1 [place] [address] F31.9 [place] [facility] [address] [place], Jun, Bipolar 1 [place] [address] F31.9 [place] [facility] [address] [place], Jun, Bipolar 1 [place] [address] F31.9 [facility] [address] [facility] 06 Aug, 2018 [place] [address] cancer Z12.31 [place] [facility] [address] [place] [address] [place], Jun, Bipolar 1 [place] [address] F31.9 [place] [facility] [address] [facility] [place], May[place] Bipolar 1 [place] [address] F31.9 [place] [facility] [address] [facility] [place], [place] [address] [place] [facility] [address] [place] [address] [place] [address] [place] [facility] [address] [place] [address] [place], [place] [address] [place] [address] [place], [place] [address] [place] [address] [place], Apr, Bipolar 1 [place] [address] F31.9 ; Screening for cervical cancer Z12.4 ; Other obesity due to excess calories E66.09 and BMI 30.0-30.9,adult Z68.[address] [place] [address] [place], Apr, Impacted cerumen , [place] [address] ear H61.[address] Apr, [place] [address] [place] [address] [place], [place] [address] [place], Dec, Bipolar 1 [place] [address] F31.9 ; Anxiety F41.9 and Screening for cervical cancer Z12.[address] [place] [address] [place], [place] [address] IMMUNIZATIONS No Known Immunizations SOCIAL HISTORY Never Assessed REASON FOR REFERRAL FUNCTIONAL STATUS PLAN OF CARE VITAL SIGNS MEDICATIONS Unknown Medications PROCEDURES No Known procedures RESULTS No Results REASON FOR VISIT Schedule appt for pt Insurance Providers [facility] Member Patient Patient Patient Patient Patient Subscriber Subscriber Subscriber Group Insurance Plan Plan Plan Plan ID Relationship Address Phone Name Date of ID Name Date of No Type Insurance Insurance Insurance Coverage to Subscriber Address Phone Name Dates Case [phone] Case self Deborah [id number] Management [place] [address] [facility] [address] [facility] [place] [phone] [place] self Deborah [id number] Ess Plan 1 [id number] Ess Plan 1 [place] [address] Dental [place] [address] [place] [address] [employer] [place] [phone] [place] self Deborah [id number] Essential [place] 47 [address] [place] Plan [address] [place] [address] Plan 1 2 Medical Medical Medicaid [id number] [phone] Medicaid self Deborah [id number] Wrap [facility] [address] [facility] [address] MEDICAL (GENERAL) HISTORY Type Description Date Medical History depression and anxiety. Medical History bipolar Medical History nerve pain. Surgical History 1998 Hospitalization History 1998 Hospitalization History ED visits on several occasions, for mental health issues
--- OUTSIDE RECORDS SUMMARY | 2019-04-25 19:51 | XMS REPORT ---
:1960 Author Organization [facility] Address [address] [place] [address] Care Team Providers Name Role Phone Anika Amaya Unavailable Unavailable PROBLEMS Type Condition ICD9-CM Code [id number] Code Onset Condition SNOMED Code Dates Status Problem BMI Z68.30 Active 351823616 30.0-30.9,adult Problem Other obesity E66.09 Active 841860470 due to excess calories Problem High cholesterol E78.00 Active 16420838 Problem Bipolar 1 F31.9 Active 913088000 disorder Problem Anxiety F41.9 Active 63644261 ALLERGIES Substance Reaction Event Type Date Status [facility] Carbonate tremors Drug Allergy March, Active ENCOUNTERS Encounter Location Date Diagnosis [facility] [address] [place], [place] [address] [facility] [address] [place] [address] Apr, [place] [address] [facility] [address] [facility] March, Bipolar 1 [place] [address] F31.9 [facility] [address] [place], [place] [address] [facility] [address] [facility] March, [place] [address] [facility] [address] [place], [place] [address] [place], [facility] [place] [address] [facility] [address] [facility] [address] [place], [place] [address] [facility] [address] [facility] March, [place] [address] [facility] [address] [facility] [place], [place] [address] [facility] [place] [address] [facility] [place], [place], [place] [address] [facility] [address] [place], [place] [address] [facility] [address] [facility] March, [place] [address] [facility] [address] [place], Feb, Bipolar 1 [place] [address] F31.9 [facility] [address] [place], Jan, Bipolar 1 [place] [address] F31.9 [facility] [address] [place], Jan, Bipolar 1 [place] [address] F31.9 [facility] [address] [facility] Jan, [place] [address] [facility] [address] [place], Jan, Bipolar 1 [place] [address] F31.9 and Anxiety F41.9 [facility] [address] [place], [place] [address] Dec, [place] [address] [facility] [address] [place], Dec, Bipolar 1 [place] [address] F31.9 ; Anxiety F41.9 ; Screening for colon cancer Z12.11 ; Need for hepatitis C screening test Z11.59 and Screening, lipid Z13.220 [facility] [address] [place], Nov, Bipolar 1 [place] [address] F31.9 [facility] [address] Nov, [place] [address] [facility] [address] [place], Nov, Bipolar 1 [place] [address] F31.9 [facility] [address] [place], Oct, Bipolar 1 [place] [address] F31.9 [place] [facility] [address] Oct, [place]ipolar 1 [place] [address] F31.9 [place] [facility] [address] [place], Oct, Bipolar 1 [place] [address] F31.9 [facility] [address] [place], [place] [address] [facility] [address] [facility] Sep, Bipolar 1 [place] [address] F31.9 [facility] [address] [facility] Sep, [place] [address] [facility] [address] [facility] Sep, [place] [address] [facility] [address] [place], Aug, Bipolar 1 [place] [address] F31.9 [place] [address] [facility] Aug, [place] [address] Aug, [place] [address] [facility] [address] [place], Jul, Bipolar 1 [place] [address] F31.9 [place] [facility] [address] [place], [place] [address] [facility] [address] [place], Jul, Bipolar 1 [place] [address] F31.9 ; BMI 30.0-30.9,adult Z68.30 and Other obesity due to excess calories E66.[address] Jul, [place] [address] [place] [facility] [address] [place], Jul, Bipolar 1 [place] [address] F31.9 [place] [facility] [address] [place], Jul, Bipolar 1 [place] [address] F31.9 [place] [address] [facility] Jul, [place] [address] [place] [facility] [address] [place], Jul, Bipolar 1 [place] [address] F31.9 [place] [facility] [address] [place], Jun, Bipolar 1 [place] [address] F31.9 [place] [facility] [address] [place], Jun, Bipolar 1 [place] [address] F31.9 [place] [facility] [address] [place], Jun, Bipolar 1 [place] [address] F31.9 [place] [facility] [address] [place], Jun, Bipolar 1 [place] [address] F31.9 [place] [address] [facility] Jun, [place] [address] cancer Z12.31 [place] [facility] [address] [place] [address] [place], Jun, Bipolar 1 [place] [address] F31.9 [place] [facility] [address] [place] [address] [place], May, Bipolar 1 [place] [address] F31.9 [place] [facility] [address] [place] [address] [place], [place] [address] [place] [facility] [address] [place] [address] [place], [place] [address] [place] [facility] [address] [facility] [place], [place] [address] [place] [facility] [address] [place] [address] [place] [address] [place] [facility] [address] [place] [address] [place], Apr, Bipolar 1 [place] [address] F31.9 ; Screening for cervical cancer Z12.4 ; Other obesity due to excess calories E66.09 and BMI 30.0-30.9,adult Z68.[address] [place] [address] [place], Apr, Impacted [place] [address] [address] Apr, [place] [address] [place] [facility] [address] [place] [address] [place], [place] [address] [place], Dec, Bipolar 1 [place] [address] F31.9 ; Anxiety F41.9 and Screening for cervical cancer Z12.[address] [place], [place] [address] IMMUNIZATIONS No Known Immunizations SOCIAL HISTORY Never Assessed REASON FOR REFERRAL FUNCTIONAL STATUS PLAN OF CARE Activity Details Follow Up 2 Weeks Reason: VITAL SIGNS Temperature 97.5 degrees Fahrenheit 2019-04-05 Heart Rate 20 2019-04-05 Weight 174.9 2019-04-05 Height 64.0 in 2019-04-05 BMI 30.02 kg/m2 2019-04-05 Oximetry 100 % 2019-04-05 Blood pressure systolic 109 mm Hg 2019-04-05 Blood pressure diastolic 79 mm Hg 2019-04-05 MEDICATIONS Medication Instructions Dosage Frequency Start End Duration Status Date Date Aleve PM Active 220-25 MG MiraLax - Orally daily at Not-Takin night before bed g with orange juice Gabapentin 300 Orally 3 times a 2 caps 30 Active MG day. Fish Oil 1000 Orally Once a 1 capsule 24h Not-Takin MG day g Advil PM Orally Once a 2 tablets 24h Active 200-38 MG day at bedtime as needed Depakote ER Orally daily take two 24h March, day(s) Active 500 mg capsule 2018 PROCEDURES Procedure Date Ordered Result Body Site BODY MASS INDEX DOCD April 05, 2019 Oxygen saturation results documented and reviewed April 05, 2019 BLOOD PRESSURE, MEASURED April 05, 2019 RESULTS No Results REASON FOR VISIT depression f/u Insurance Providers [facility] Health Member Patient Patient Patient Patient Patient Subscriber Subscriber Subscriber Group Insurance Plan Plan Plan Plan ID Relationship Address Phone Name Date of ID Name Date of No Type Insurance Insurance Insurance Coverage to Subscriber Address Phone Name Dates [place] [phone] [place] self Deborah [id number] Essential [place] [address] Ess[address] [place] [address] [place] [id number] Plan 1 2 Medical Medical [place] [phone] [place] self Deborah [id number] Ess Plan [id number] Ess Plan 1 [place] [address] [place] [address] [place] [address] [employer] Medicaid [id number] [phone] Medicaid self Deborah [id number] Wrap [facility] [address] [place] [id number] Case [phone] Case self Deborah [id number] Management [place] 02 Management [facility] [address] [facility] MEDICAL (GENERAL) HISTORY Type Description Date Medical History depression and anxiety. Medical History bipolar Medical History nerve pain. Surgical History 1998 Hospitalization History 1998 Hospitalization History ED visits on several occasions, for mental health issues
--- OUTSIDE RECORDS SUMMARY | 2019-04-25 19:51 | XMS REPORT ---
:1960 Author Organization [facility] Address [address] [place] [address] Care Team Providers Name Role Phone Leonardo Anguiano Unavailable Unavailable PROBLEMS Type Condition ICD9-CM Code [id number] Code Onset Condition SNOMED Code Dates Status Problem BMI Z68.30 Active 692449277 30.0-30.9,adult Problem Other obesity E66.09 Active 451924214 due to excess calories Problem High cholesterol E78.00 Active 87260372 Problem Bipolar 1 F31.9 Active 514111825 disorder Problem Anxiety F41.9 Active 88308517 ALLERGIES No Information ENCOUNTERS Encounter Location Date Diagnosis [facility] [address] [place], [place] [address] [facility] [address] [facility] Apr, [place] [address] [facility] [address] [facility] [place], [place] [address] [facility] [address] [place], [place] [address] [facility] [address] [facility] [place], Bipolar 1 [place] [address] F31.9 [facility] [address] [place], [place] [address] [facility] [address] [facility] [place], [place] [address] [facility] [address] [place], [place] [address] [place] [address] [facility]ly [facility] [address] [place], [place] [address] [place] [facility] [address] [facility] [place], [place] [address] [facility] [address] [facility] [place], [place] [address] [facility] - [facility] - [place] [address] [facility] [place], [place], [place] [address] [facility] [address] [facility] [place], [place] [address] [facility] [address] [facility] [place], [place] [address] [facility] [address] [place], Feb, Bipolar 1 [place] [address] F31.9 [facility] [address] [place], Jan, Bipolar 1 [place] [address] F31.9 [facility] [address] [facility] [place], Jan, Bipolar 1 [place] [address] F31.9 [facility] [address] [facility] Jan, [place] [address] [facility] [address] [place], Jan, Bipolar 1 [place] [address] F31.9 and Anxiety F41.9 [place] [facility] [address] [place], [place] [address] Dec, [place] [address] [place] [facility] [address] [place], Dec, Bipolar 1 [place] [address] F31.9 ; Anxiety F41.9 ; Screening for colon cancer Z12.11 ; Need for hepatitis C screening test Z11.59 and Screening, lipid Z13.220 [place] [facility] [address] [place], Nov, Bipolar 1 [place] [address] F31.9 [place] [facility] [address] [facility] Nov, [place] [address] [place] [facility] [address] [place], Nov, Bipolar 1 [place] [address] F31.9 [facility] [address] [place], Oct, Bipolar 1 [place] [address] F31.9 [facility] [address] Oct, [place]ipolar 1 [place] [address] F31.9 [place] [facility] [address] [place], Oct, Bipolar 1 [place] [address] F31.9 [place] [facility] [address] [place], [place] [address] [facility] [address] [facility] Sep, [place]ipolar 1 [place] [address] F31.9 [facility] [address] [facility] Sep, [place] [address] [facility] [address] [facility] Sep, [place] [address] [facility] [address] [place], Aug, Bipolar 1 [place] [address] F31.9 [facility] [address] [facility] Aug, [place] [address] Aug, [place] [address] [facility] [address] [place], Jul, Bipolar 1 [place] [address] F31.9 [place] [facility] [address] [place], [place] [address] [facility] [address] [place], Jul, Bipolar 1 [place] [address] F31.9 ; BMI 30.0-30.9,adult Z68.30 and Other obesity due to excess calories E66.[address] Jul, [place] [address] [place] [facility] [address] [place], Jul, Bipolar 1 [place] [address] F31.9 [place] [facility] [address] [place], Jul, Bipolar 1 [place] [address] F31.9 [facility] [address] [facility] Jul, [place] [address] [place] [facility] [address] [place], Jul, Bipolar 1 [place] [address] F31.9 [place] [facility] [address] [place], Jun, Bipolar 1 [place] [address] F31.9 [place] [facility] [address] [place], Jun, Bipolar 1 [place] [address] F31.9 [place] [facility] [address] [place], Jun, Bipolar 1 [place] [address] F31.9 [place] [facility] [address] [place], Jun, Bipolar 1 [place] [address] F31.9 [facility] [address] [facility] Jun, [place] [address] cancer Z12.31 [place] [facility] [address] [facility] [place], Jun, Bipolar 1 [place] [address] F31.9 [place] [facility] [address] [place], [place], Bipolar 1 [place] [address] F31.9 [place] [facility] [address] [facility] [place], [place] [address] [place] [facility] [address] [place], [place] [address] [place] [facility] [address] [place], [place] [address] [place] [facility] [address] [place] [address] [place], [place] [address] [facility] [address] [place] [address] [place], Apr, Bipolar 1 [place] [address] F31.9 ; Screening for cervical cancer Z12.4 ; Other obesity due to excess calories E66.09 and BMI 30.0-30.9,adult Z68.30 [place] [facility] [address] [place] [address] [place], Apr, Impacted [place] [address] ear H61.22 [facility] [address] [facility] Apr, [place] [address] [facility] [address] [place] [address] [place], [place] [address] [facility] [address] [facility] [place], Dec, Bipolar 1 [place] [address] F31.9 ; Anxiety F41.9 and Screening for cervical cancer Z12.[address] [place] [address] [place], [place] [address] IMMUNIZATIONS No Known Immunizations SOCIAL HISTORY Never Assessed REASON FOR REFERRAL FUNCTIONAL STATUS PLAN OF CARE VITAL SIGNS MEDICATIONS Unknown Medications PROCEDURES No Known procedures RESULTS No Results REASON FOR VISIT FYI Insurance Providers [facility] Member Patient Patient Patient Patient Patient Subscriber Subscriber Subscriber Group Insurance Plan Plan Plan Plan ID Relationship Address Phone Name Date of ID Name Date of No Type Insurance Insurance Insurance Coverage to Subscriber Address Phone Name Dates Case [phone] Case self Deborah [id number] Management [place] [address] [facility] [address] Community Medicaid [phone] Medicaid self Deborah [id number] Wrap [facility] [address] [place] [address] [place] [phone] [place] self Deborah [id number] Ess Plan 1 [id number] Ess Plan 1 [place] 2 Dental [place] [address] [place] [address] [employer] [place] [phone] [place] [address] self Deborah [id number] Essential [place] 47 Ess[place] Plan 1 2 [place] [id number] Plan 1 2 Medical Medical MEDICAL (GENERAL) HISTORY Type Description Date Medical History depression and anxiety. Medical History bipolar Medical History nerve pain. Surgical History 1998 Hospitalization History 1998 Hospitalization History ED visits on several occasions, for mental health issues
--- OUTSIDE RECORDS SUMMARY | 2019-04-25 19:51 | XMS REPORT ---
:1960 [facility] Organization [facility] Address [address] [place] [address] Care Team Providers Name Role Phone Leonardo Anguiano Unavailable Unavailable PROBLEMS Type Condition ICD9-CM Code [id number] Code Onset Condition SNOMED Code Dates Status Problem BMI Z68.30 Active 765308756 30.0-30.9,adult Problem Other obesity E66.09 Active 799379874 due to excess calories Problem High cholesterol E78.00 Active 41791436 Problem Bipolar 1 F31.9 Active 982643699 disorder Problem Anxiety F41.9 Active 71635975 ALLERGIES No Information ENCOUNTERS Encounter Location Date Diagnosis [facility] [address] [facility], [place] [address] [facility] [address] [place] [address] Apr, [place] [address] [facility] [address] [place] [address] March, Bipolar 1 [place] [address] F31.9 [facility] [address] [facility], [place] [address] [facility] [address] [place] [address] March, [place] [address] [facility] [address] [facility], [place] [address] [place], [facility] [place] [address] [facility] [address] [facility] [address] March, [place] [address] [facility] [address] [place] [address] March, [place] [address] [facility] [address] [place] [address] March, [place] [address] [facility] - Resource - [place] [address] [facility] [place], [place], [place] [address] [facility] [address] [place] [address] March, [place] [address] [facility] [address] [place] [address] March, [place] [address] [facility] [address] [place], Feb, Bipolar 1 [place] [address] F31.9 [facility] [address] [place], Jan, Bipolar 1 [place] [address] F31.9 [facility] [address] [facility] [place], Jan, Bipolar 1 [place] [address] [address] Jan, [place] [address] [facility] [address] [facility] [place], Jan, Bipolar 1 [place] [address] F31.9 and Anxiety F41.9 [facility] [address] [facility] [place], [place] [address] Dec, [place] [address] [facility] [address] [place], Dec, Bipolar 1 [place] [address] F31.9 ; Anxiety F41.9 ; Screening for colon cancer Z12.11 ; Need for hepatitis C screening test Z11.59 and Screening, lipid Z13.220 [facility] [address] [place], Nov, Bipolar 1 [place] [address] F31.9 [facility] [address] [place] [address] Nov, [place] [address] [facility] [address] [place], Nov, Bipolar 1 [place] [address] F31.9 [facility] [address] [place], Oct, Bipolar 1 [place] [address] F31.9 [facility] [address] [facility] [address] Oct, Bipolar 1 disorder [place], [place] [address] F31.9 [facility] [address] [place], Oct, Bipolar 1 [place] [address] F31.9 [facility] [address] [facility] [place], [place] [address] [facility] [address] [place] [address] Sep, Bipolar 1 [place] [address] F31.9 [facility] [address] [facility] Sep, [place] [address] [facility] [address] [facility] Sep, [place] [address] [facility] [address] [place], Aug, Bipolar 1 [place] [address] F31.9 [facility] [address] [facility] Aug, [place] [address] Aug, [place] [address] [facility] [address] [place], Jul, Bipolar 1 [place] [address] F31.9 [place] [facility] [address] [place], [place] [address] [facility] [address] [place], Jul, Bipolar 1 [place] [address] F31.9 ; BMI 30.0-30.9,adult Z68.30 and Other obesity due to excess calories E66.[address] Jul, [place] [address] [place] [facility] [address] [place], Jul, Bipolar 1 [place] [address] F31.9 [place] [facility] [address] [place], Jul, Bipolar 1 [place] [address] F31.9 [facility] [address] [facility] Jul, [place] [address] [place] [facility] [address] [place], Jul, Bipolar 1 [place] [address] F31.9 [place] [facility] [address] [place], Jun, Bipolar 1 [place] [address] F31.9 [place] [facility] [address] [place], Jun, Bipolar 1 [place] [address] F31.9 [place] [facility] [address] [place], Jun, Bipolar 1 [place] [address] F31.9 [place] [facility] [address] [place], Jun, Bipolar 1 [place] [address] F31.9 [facility] [address] [facility] Jun, Screening for breast [place] [address] cancer Z12.31 [place] [facility] [address] [place], Jun, Bipolar 1 [place] [address] F31.9 [place] [facility] [address] [place] [address] [place], May, Bipolar 1 [place] [address] F31.9 [place] [facility] [address] [place] [address] [place], [place] [address] [place] [facility] [address] [place] [address] [place], [place] [address] [place] [facility] [address] [facility] [place], [place] [address] [place] [facility] [address] [place], [place] [address] [place] [address] [place], Apr, Bipolar 1 [place] [address] F31.9 ; Screening for cervical cancer Z12.4 ; Other obesity due to excess calories E66.09 and BMI 30.0-30.9,adult Z68.[address] [place] [address] [place], Apr, Impact[place] [address] ear H61.[address] Apr, [place] [address] [place] [facility] [address] [place] [address] [place], [place] [address] [place] [address] [place], Dec, Bipolar 1 [place] [address] F31.9 ; Anxiety F41.9 and Screening for cervical cancer Z12.[address] [place] [address] [place], [place] [address] IMMUNIZATIONS No Known Immunizations SOCIAL HISTORY Never Assessed REASON FOR REFERRAL FUNCTIONAL STATUS PLAN OF CARE VITAL SIGNS MEDICATIONS Unknown Medications PROCEDURES No Known procedures RESULTS No Results REASON FOR VISIT Information Insurance Providers [facility] Member Patient Patient Patient Patient Patient Subscriber Subscriber Subscriber Group Insurance Plan Plan Plan Plan ID Relationship Address Phone Name Date of ID Name Date of No Type Insurance Insurance Insurance Coverage to Subscriber Address Phone Name Dates Medicaid [address] [phone] Medicaid self Deborah [id number] [place] [address] [place] [place] [address] [place] [phone] [place] self Deborah [id number] Essential [place] [address] [place] Plan [address] [place] [address] Plan 1 2 Medical Medical Case [phone] Case self Deborah [id number] Management [place] 02 Management [facility] [address] [facility] [place] Box [phone] [place] self Deborah [id number] Ess Plan 1 [id number] 08 Ess Plan 1 [facility] [place] [address] [place] [address] [facility] MEDICAL (GENERAL) HISTORY Type Description Date Medical History depression and anxiety. Medical History bipolar Medical History nerve pain. Surgical History 1998 Hospitalization History 1998 Hospitalization History ED visits on several occasions, for mental health issues
--- OUTSIDE RECORDS SUMMARY | 2019-04-25 19:51 | XMS REPORT ---
:1960 Author Organization [facility] Address [address] [place] [address] Care Team Providers Name Role Phone Leonardo Anguiano Unavailable Unavailable PROBLEMS Type Condition ICD9-CM Code UGF95-SA Code Onset Condition SNOMED Code Dates Status Problem BMI Z68.30 Active 343766836 30.0-30.9,adult Problem Other obesity E66.09 Active 882348919 due to excess calories Problem High cholesterol E78.00 Active 18370919 Problem Bipolar 1 F31.9 Active 068369392 disorder Problem Anxiety F41.9 Active 57378513 ALLERGIES No Information ENCOUNTERS Encounter Location Date Diagnosis [facility] [address] [facility], [place] [address] [facility]ly [facility], [facility] [address] [place] [address] Apr, [place] [address] [facility], [facility] [address] [place] [address] March, Bipolar 1 [place] [address] F31.9 [facility] [address] [facility], [place] [address] [facility], [facility] [address] [place] [address] [place], [place] [address] [facility] [address] [facility], [place] [address] [place], [facility] [place] [address] [facility] [address] [facility] [address] March, [place] [address] [facility], [facility] [address] [place] [address] March, [place] [address] [facility], [facility] [address] [place] [address] March, [place] [address] [facility] - Resource - [place] [address] [facility] [place], [place], [place] [address] [facility], [facility] [address] [place] [address] March, [place] [address] [facility], [facility] [address] [place] [address] March, [place] [address] [facility] [address] [place], Feb, Bipolar 1 [place] [address] F31.9 [facility] [address] [place], Jan, Bipolar 1 [place] [address] F31.9 [facility] [address] [facility] [place], Jan, Bipolar 1 [place] [address] [address]31[address] Jan, [place] [address] [facility] [address] [facility] [place], Jan, Bipolar 1 [place] [address] F31.9 and Anxiety F41.9 [facility] [address] [facility] [place], [place] [address] Dec, [place] [address] [facility] [address] [place], Dec, Bipolar 1 [place] [address] F31.9 ; Anxiety F41.9 ; Screening for colon cancer Z12.11 ; Need for hepatitis C screening test Z11.59 and Screening, lipid Z13.220 [facility] [address] [place], Nov, Bipolar 1 [place] [address] F31.9 [facility], [facility] [address] [place] [address] Nov, [place] [address] [facility] [address] [place], Nov, Bipolar 1 [place] [address] F31.9 [facility] [address] [place], Oct, Bipolar 1 [place] [address] F31.9 [facility] [address] [facility] [address] Oct, Bipolar 1 disorder [place], [place] [address] F31.9 [facility] [address] [place], Oct, Bipolar 1 [place] [address] F31.9 [facility] [address] [facility] [place], [place] [address] [facility]ly [facility], [facility] [address] [place] [address] Sep, Bipolar 1 [place] [address] F31.9 [facility] [address] [facility] Sep, [place] [address] [facility]ly [facility], [facility] [address] [facility] Sep, [place] [address] [facility] [address] [place], Aug, Bipolar 1 [place] [address] F31.9 [facility] [address] [facility] Aug, [place] [address] Aug, [place] [address] [facility] [address] [place], Jul, Bipolar 1 [place] [address] F31.9 [place] [facility] [address] [place], [place] [address] [facility] [address] [place], Jul, Bipolar 1 [place] [address] F31.9 ; BMI 30.0-30.9,adult Z68.30 and Other obesity due to excess calories E66.[address] Jul, [place] [address] [place] [facility] [address] [place], Jul, Bipolar 1 [place] [address] F31.9 [place] [facility] [address] [place], Jul, Bipolar 1 [place] [address] F31.9 [facility], [facility] [address] [facility] Jul, [place] [address] [place] [facility] [address] [place], Jul, Bipolar 1 [place] [address] F31.9 [place] [facility] [address] [place], Jun, Bipolar 1 [place] [address] F31.9 [place] [facility] [address] [place], Jun, Bipolar 1 [place] [address] F31.9 [place] [facility] [address] [place], Jun, Bipolar 1 [place] [address] F31.9 [place] [facility] [address] [place], Jun, Bipolar 1 [place] [address] F31.9 [facility], [facility] [address] [facility] Jun, Screening for breast [place] [address] cancer Z12.31 [place] [facility] [address] [place], Jun, Bipolar 1 [place] [address] F31.9 [place] [facility] [address] [place] [address] [place], May, Bipolar 1 [place] [address] F31.9 [place] [facility] [address] [place] [address] [place], [place] [address] [place] [facility] [address] [place] [address] [place], [place] [address] [place] [facility] [address] [place] [address] [place], [place] [address] [place] [address] [place], [place] [address] [place] [address] [place], Apr, Bipolar 1 [place] [address] F31.9 ; Screening for cervical cancer Z12.4 ; Other obesity due to excess calories E66.09 and BMI 30.0-30.9,adult Z68.[address] [place] [address] [place], Apr, [place] [address] ear H61.[address] Apr, [place] [address] [place] [address] [place], [place] [address] [place] [address] [place], Dec, Bipolar 1 [place] [address] F31.9 ; Anxiety F41.9 and Screening for cervical cancer Z12.[address] [place] [address] [place], [place] [address] IMMUNIZATIONS No Known Immunizations SOCIAL HISTORY Never Assessed REASON FOR REFERRAL FUNCTIONAL STATUS PLAN OF CARE VITAL SIGNS MEDICATIONS Unknown Medications PROCEDURES No Known procedures RESULTS No Results REASON FOR VISIT Acute Triage Insurance Providers [facility] Member Patient Patient Patient Patient Patient Subscriber Subscriber Subscriber Group Insurance Plan Plan Plan Plan ID Relationship Address Phone Name Date of ID Name Date of No Type Insurance Insurance Insurance Coverage to Subscriber Address Phone Name Dates Medicaid [address] [phone] Medicaid self Deborah [id number] Wrap [facility] [address] [facility] [address] Case [phone] Case self Deborah [id number] Management [place] 02 [facility] [address] [facility] [place] [phone] [place] self Deborah [id number] Essential [place] [address] [place] Plan [address] [place] [address] Plan 1 2 Medical Medical [place] [address] [phone] [place] self Deborah [id number] Ess Plan 1 2906 08 Ess Plan 1 [place] 2 Dental [place] [address] [place] [address] [facility] MEDICAL (GENERAL) HISTORY Type Description Date Medical History depression and anxiety. Medical History bipolar Medical History nerve pain. Surgical History 1998 Hospitalization History 1998 Hospitalization History ED visits on several occasions, for mental health issues
--- NOTE | 2019-04-25 20:34 | ED ---
Psychiatric Complaint - HPI Summary HPI Summary: This patient is a 58 year old F presenting to ED with a chief complaint of depression since many years ago worsening recently. Patient was on Prozac for 25 years, but she was taken off Prozac cold turkey by her new psychiatrist recently and put on Divalproex 1000mg. Patient also takes gabapentin. She is not taking any anti-depressants currently. The patient rates the pain 4/10 in severity. Symptoms alleviated by nothing. Patient denies fever, HI, SI. PMHx of depression, bipolar disorder, but no DM, HTN. PSHx of tummy tuck and breast reduction. FHx of suicide. Patient does not tobacco but uses alcohol and marijuana. - History Of Current Complaint Chief Complaint: EDMentalHealth Time Seen by Provider: 04/25/19 20:24 Hx Obtained From: Patient Hx Last Menstrual Period: 8 yrs ago Onset/Duration: Gradual Onset, Still Present, Worse Since Timing: Constant Character: Depressed Aggravating Factor(s): Other - Change in medication prescriptions Alleviating Factor(s): Nothing Related History: Positive For: Prior Psychiatric Issues Has Suicidal: Denies: Thoughts Has Homicidal: Denies: Thoughts - Allergies/Home Medications Allergies/Adverse Reactions: Allergies Allergy/AdvReac Type Severity Reaction Status Date / Time No Known Allergies Allergy Verified 04/25/19 19:40 Home Medications: Home Medications Ascorbic Acid/Collagen Hydr [Collagen Plus Vitamin C] 1 cap PO BID 04/25/19 [ History Confirmed 04/25/19] Divalproex ER TAB(*) [Depakote ER TAB(*)] 1,000 mg PO DAILY 04/25/19 [History Confirmed 04/25/19] Ibuprofen TAB* [Advil TAB*] 800 mg PO BEDTIME 04/25/19 [History Confirmed ] PMH/Surg Hx/FS Hx/Imm Hx Previously Healthy: No Endocrine/Hematology History: Denies: Hx Diabetes Cardiovascular History: Denies: Hx Hypertension History: Denies: Hx Renal Disease Sensory History: Denies: Hx Deafness Psychiatric History: Reports: Hx Bipolar Disorder - bipolar I - Surgical History Surgery Procedure, Year, and Place: "tummy tuck", breast reduction Infectious Disease History: No Infectious Disease History: Denies: Traveled Outside the [place] in Last 30 Days - Family History Known Family History: Positive: Other - FMHX of suicide Negative: Hypertension - Social History Alcohol Use: Daily Alcohol Amount: 1 glass red wine with dinner Hx Substance Use: Yes Substance Use Type: Reports: Marijuana Substance Use Comment - Amount & Last Used: "cookie for the first time at 2:00 am" Hx Tobacco Use: No Smoking Status (MU): Never Smoked Tobacco Review of Systems Negative: Fever Psychological: Other - Negative HI, SI Positive: Depressed All Other Systems Reviewed And Are Negative: Yes Physical Exam - Summary Physical Exam Summary: VITAL SIGNS: Reviewed. GENERAL: Patient is a well-developed and nourished female who is lying comfortable in the stretcher. Patient is not in any acute respiratory distress. HEAD AND FACE: No signs of trauma. No ecchymosis, hematomas or skull depressions. No sinus tenderness. EYES: PERRLA, EOMI x 2, No injected conjunctiva, no nystagmus. EARS: Hearing grossly intact. Ear canals and tympanic membranes are within normal limits. MOUTH: Oropharynx within normal limits. NECK: Supple, trachea is midline, no adenopathy, no JVD, no carotid bruit, no c- spine tenderness, neck with full ROM. CHEST: Symmetric, no tenderness at palpation LUNGS: Clear to auscultation bilaterally. No wheezing or crackles. CVS: Regular rate and rhythm, S1 and S2 present, no murmurs or gallops appreciated. ABDOMEN: Soft, non-tender. No signs of distention. No rebound no guarding, and no masses palpated. Bowel sounds are normal. EXTREMITIES: FROM in all major joints, no edema, no cyanosis or clubbing. NEURO: Alert and oriented x 3. No acute neurological deficits. Speech is normal and follows commands. SKIN: Dry and warm. PSYCH: Sad and denies any suicidal thoughts or plan. No homicidal thoughts or plan. No signs of psychosis or pressure speech. No tangential speech. Triage Information Reviewed: Yes Vital Signs On Initial Exam: Initial Vitals Temp Pulse Resp BP Pulse Ox 98.6 F 96 18 115/79 99 04/25/19 19:37 04/25/19 19:37 04/25/19 19:37 04/25/19 19:37 04/25/19 19:37 Vital Signs Reviewed: Yes Diagnostics - Vital Signs Vital Signs Temp Pulse Resp BP Pulse Ox 04/25/19 19:37 98.6 F 96 18 115/79 99 - Laboratory Result Diagrams: 04/25/19 21:15 04/25/19 21:15 Lab Statement: Any lab studies that have been ordered have been reviewed, and results considered in the medical decision making process. Course/Dx - Course Assessment/Plan: Blood work w/o a significant abnormality. She is medically cleared. She is awaiting for a MHE. Patient is hemodynamically stable and A+O x 3. Patient is signed ou to Dr. Keane at shift change - Differential Dx/Clinical Impression Differential Diagnosis/HQI/PQRI: Positive: Depression Provider Diagnosis: Mood disorder Discharge - Sign-Out/Discharge Documenting (check all that apply): Sign-Out Patient Signing out patient TO: Julián Keane Patient Received Moderate/Deep Sedation with Procedure: No - Discharge Plan Condition: Good [place] [place] Attestation Statements Document Initiated by Scribe: Yes Documenting Scribe: Leonardo Workman Provider For Whom Scribe is Documenting (Include Credential): Uri Murillo MD Scribe Attestation: ILeonardo, scribed for Uri Murillo MD on 04/26/19 at 1016. Scribe Documentation Reviewed: Yes Provider Attestation: The documentation as recorded by the Leonardo mehta accurately reflects the service I personally performed and the decisions made by me, Uri Murillo MD Status of Scribe Document: Viewed
[2019-04-25 21:23] LABS: ABS Basophils 0.1 10^3/ul (0-0.2); ABS Eosinophils 0.3 10^3/ul (0-0.6); ABS Lymphocytes 1.6 10^3/ul (1.0-4.8); ABS Monocytes 0.5 10^3/ul (0-0.8); ABS Neutrophils 2.8 10^3/ul (1.5-7.7); Eosinophil % 6.3 %; Hematocrit 36 % (35-47); Hemoglobin 12.6 g/dL (12.0-16.0); Mean Corpuscular HGB Conc 35 g/dL (31-36); Mean Corpuscular Hemoglobin 33 pg (27-31); Mean Corpuscular Volume 96 fL (80-97); Mean Platelet Volume 8.4 fL (7.4-10.4); Nucleated Red Blood Cells % 0.2; Platelet Count 217 10^3/uL (150-450); Red Blood Count 3.79 10^6 /uL (3.70-4.87); Red Cell Distribution Width 13 % (10-15); White Blood Count 5.4 10^3/uL (3.5-10.8)
[2019-04-25 21:41] LABS: ALT 17 U/L (7-52); AST 21 U/L (13-39); Albumin 4.4 g/dL (3.2-5.2); Albumin/Globulin Ratio 1.5 (1-3); Alkaline Phosphatase 56 U/L (34-104); Anion Gap 9 mmol/L (2-11); BUN/Creatinine Ratio 23.2 (8-20); Blood Urea Nitrogen 19 mg/dL (6-24); CO2 Carbon Dioxide 26 mmol/L (22-32); Calcium 9.5 mg/dL (8.6-10.3); Chloride 104 mmol/L (101-111); EGFR African American 86.9 (>60); EGFR Non-African American 71.9 (>60); Globulin 2.9 g/dL (2-4); Glucose 97 mg/dL (70-100); Potassium 3.7 mmol/L (3.5-5.0); Sodium 139 mmol/L (135-145); Total Protein 7.3 g/dL (6.4-8.9)
[2019-04-25 21:43] LABS: Acetaminophen < 15 mcg/mL; Alcohol < 10 mg/dL (<10); Salicylate < 2.50 mg/dL (<30)
--- NOTE | 2019-04-25 21:45 | ED ---
Progress - Progress Note Progress Note: Patient is received as a sign-out from Dr. Murillo to Dr. Keane at 2200 04/25/19 shift change pending MHE and disposition of this mental health patient. 2306 - Mental Health Worker reports that Dr. Angel has reviewed the patient's case, patient will be admitted on voluntary basis with Dx of unspecified mood disorder. Dr. Keane is agreeable with this. Course/Dx - Course Course Of Treatment: Patient is received as a sign-out from Dr. Murillo to Dr. Keane at 2200 04/25/19 shift change pending MHE and disposition of this mental health patient. 2306 - Mental Health Worker reports that Dr. Angel has reviewed the patient's case, patient will be admitted on voluntary basis with Dx of unspecified mood disorder. Dr. Keane is agreeable with this. - Diagnoses Provider Diagnoses: Mood disorder - Provider Notifications Discussed Care Of Patient With: Paul Angel Time Discussed With Above Provider: 23:07 Instructed by Provider To: Other - 2306 - Mental Health Worker reports that Dr. Angel has reviewed the patient's case, patient will be admitted on voluntary basis with Dx of unspecified mood disorder. Dr. Keane is agreeable with this. Discharge - Sign-Out/Discharge Documenting (check all that apply): Patient Departure - admit - Discharge Plan Condition: Good Disposition: [facility]ATR[facility]AC[facility] [place] Referrals: No Primary Care Phys,NOPCP [Primary Care Provider] - - Attestation Statements Document Initiated by Scribe: Yes Documenting Scribe: OLIVER IGLESIAS Provider For Whom Scribtrenton is Documenting (Include Credential): KATHI KEANE MD Scribe Attestation: OLIVER Peng scribed for KATHI KEANE MD on 04/25/19 at 2327. Status of Scribe Document: Ready
[2019-04-25 21:57] LABS: TSH (Thyroid Stimulating Horm) 1.43 mcIU/mL (0.34-5.60)
[2019-04-26] MEDS ORDERED: Acetaminophen TAB* 325 MG PO PRN (02:34)
[2019-04-26] MEDS ORDERED: Al Hydrox/Mg Hydrox/Simet LIQ* 30 ML UDC PO PRN (02:34)
[2019-04-26 02:53] LABS: Urine Appearance Cloudy; Urine Bacteria 1+ (Absent); Urine Bilirubin Negative (Negative); Urine Blood Negative (Negative); Urine Color Yellow; Urine Glucose Negative (Negative); Urine Ketones Trace (Negative); Urine Nitrite Negative (Negative); Urine Protein Negative (Negative); Urine Red Blood Cell Absent (Absent); Urine Specific Gravity 1.013 (1.010-1.030); Urine Squamous Epithelial Cell Present (Absent); Urine Urobilinogen Negative (Negative); Urine White Blood Cell 1+(6-10/hpf) (Absent)
[2019-04-26 03:09] LABS: Urine Benzodiazepine Screen None Detected (None Detect); Urine Opiates Screen None Detected (None Detect)
[2019-04-26] MEDS: Multivitamins/Minerals TAB PO SCH (11:05)
--- NOTE | 2019-04-26 20:24 | HP ---
HISTORY AND PHYSICAL: DATE OF ADMISSION: 04/26/19 PROVIDER: Diamond Alcaraz NP, in Psychiatry. SUPERVISING PHYSICIAN: Martin Michaels MD * (DICTATED BY DIAMOND ALCARAZ NP) JUSTIFICATION FOR ADMISSION: The patient is in need of 24-hour supervision and care secondary to suicidal ideation. CHIEF COMPLAINT: "If I killed myself, I would be killing the one who is torturing me." HISTORY OF PRESENT ILLNESS: The patient is a 58-year-old, white female with a history of depression and purported bipolar disorder, who arrives brought in by herself and her and is here on a voluntary status after being unable to take care of herself anymore at home due to disabling depression. Deborah states that she voluntarily brought herself to the hospital with the goal today of revising medications and stopping feeling so extraordinarily depressed. She, for approximately 25 years, took gabapentin and Prozac and due to a change in her insurance, she was also required to change her practitioner who then changed her to lithium which did not go well due to intense tremor and then Depakote which she is not liking and she feels like is making her more depressed. Deborah is depressed, but is apparently almost euthymic. She is pleasant and engaging, but when the surface is scratched, she is unhappy and she is frightened of how depressed she feels. She states she feels depressed 90% at the time. She indicates that perhaps 10% at a time she is manic, although she cannot give any details of manic symptoms other than that she is not depressed any longer. She states she never gets typical manic symptoms. She states that in order to get through the day, she makes charts with detailed listings of what she needs to get done, sometimes minute by minute including items such as go outside and listen to the birds. She also puts on her list things that she "has to do," things like going to the doctor or seeing her son. She states that she is in an excellent relationship that she has a good relationship with her son. Still, she has psychomotor retardation. She is less interested in her activities. She has little energy. She cannot concentrate and she sleeps more than she wants to. PAST PSYCHIATRIC HISTORY: She started antidepressants at age 19. She has tried a variety of SSRIs and Prozac was her favorite, which she landed on and took for about 25 years. In 2017, she changed providers due to her insurance changing and her healthcare provider no longer taking [place]. At that point, she started lithium and stopped Prozac and that lasted for 2 months. She demonstrated the kind of severe tremor that she had, which people noticed, commented on and suggested that whatever was causing it should be stopped and this included customers of hers because she was still trying to work through it. After those 2 months, she started Depakote which is what she is taking now. She was started on 500 mg, increased to 1000 mg, another doctor reduced her and then another increased her. She does not like it; it causes her to have dark stool; she feels ill and depressed, she states. Suicidal ideation has been present. She states that it would be a relief because she would be killing the black thing that is torturing her. She does not have homicidal ideation and she does not really have a plan other than overdose for her suicide. She denies any significant traumas. She denies traumatic brain injury. PAST MEDICAL HISTORY: Deborah does not have any medical problems. She does have a surgical history, which includes a tummy tuck and a breast reduction. She does not note any allergies to any medications. SUBSTANCE ABUSE HISTORY: She has never smoked tobacco. She drinks a glass of red wine with dinner daily. She does use marijuana by eating edibles. She has not had treatment for substance use. FAMILY HISTORY: There is a family history of suicide; her grandfather hanged himself. SOCIAL HISTORY: She is to a man named Jon for 25 years. She has a 19- year-old son, who is on the autism spectrum. She is very proud of him; he is going to [employer]. When he comes home on the weekends, she sometimes feels very proud of him when he is "doing well." At other times, he rocks and talks to himself and that is upsetting to her. 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 She has not been in the . She does not have any legal problems. REVIEW OF SYSTEMS: Deborah reports feeling fatigued. She denies shortness of breath, heat or cold intolerance, chest pain or abdominal pain. She denies neurological symptoms. She denies fevers or changes in weight. PHYSICAL EXAMINATION GENERAL: The patient is a well developed and nourished female who I meet sitting on a couch. She is not in any acute respiratory distress. VITAL SIGNS: On 04/26/19 at 0800, temperature is 97.4, pulse is 86, respirations 16, O2 sat on room air at 0335 was 99%, blood pressure at 0800 was 82/72. HEENT: Head and face have no signs of trauma. No ecchymosis, hematomas, or skull depressions. No sinus tenderness. Eyes: PERRLA. EOMI x2. No injected conjunctivae. No nystagmus. Ears: Hearing grossly intact. Ear canals and tympanic membranes are within normal limits. Mouth: Oropharynx within normal limits. NECK: Supple. Trachea is midline. No adenopathy. No JVD. No carotid bruit. No C-spine tenderness. Neck with full range of motion. CHEST: Symmetric. No tenderness to palpation. LUNGS: Clear to auscultation bilaterally. No wheezing or crackles. CVS: Regular rate and rhythm. S1 and S2 present. No murmurs or gallops appreciated. ABDOMEN: Soft, nontender. No signs of distention. No rebound or guarding and no masses palpated. Bowel sounds are normal. EXTREMITIES: Full range of motion in all major joints. No edema. No cyanosis or clubbing. NEURO: Alert and oriented x4. No acute neurological defects. Speech is normal and she follows commands. SKIN: Warm and dry. DIAGNOSTIC STUDIES/LAB DATA: Most laboratory data are within normal limits. Exceptions include MCH high at 33, BUN-creatinine ratio high at 23.2. Urine has trace ketones, trace leukocyte esterase, contains 1+ white blood cells, present squamous epithelial cells and 1+ bacteria. Microbiology results are negative. Toxicology screen is negative. MENTAL STATUS EXAMINATION: Deborah is a 58-year-old woman who is 5 feet 3 inches and weighs 169 pounds. She has blonde hair that is held back away from her face. She is pleasant and charming to talk to. She describes psychomotor retardation and demonstrates it with her movements. She is calm and cooperative. Her speech is of a normal rate, tone, and volume. She is dysthymic. She has a full range of affect. Her thought processes might be slightly accelerated, but they are logical. Her thought content is free of delusions. She is neither homicidal nor suicidal. She is not experiencing hallucinations. Her insight is good. Her judgment is fair. She is alert and oriented x4. DIAGNOSES: 1. Major depressive disorder, recurrent, moderate. 2. Rule out anxiety disorder. IMPRESSION: Deborah is a 58-year-old, white woman who comes to the hospital in desperation from feeling as though she can no longer take care of herself in the outpatient setting due to medication changes that she feels were not in her best interest and yet she has tried to tolerate. PLAN: The patient is admitted to the adult behavioral health unit and placed on q.15-minute checks for her own safety. She is encouraged to participate in supportive milieu, individual and group therapies. Estimated length of stay is 3 to 5 days. We will be changing medications significantly, stopping Depakote, continuing gabapentin and altering the way that she takes it from 900 mg in the morning to 900 mg at night to 800 in the morning, 400 at 2 p.m. and 800 at bedtime. We will stop Depakote and we will start Prozac at 20 mg and recommend therapy. In the brief time that we spoke, it became clear that Deborah had high expectations of herself that were not going to be able to be met and for her to continue to perform at the rate that she liked. We discussed trying to work at 70% rather than 100% and this thrilled her and caused her to become tearful as she was so relieved that this was a possibility and that it was "allowed." Discharge planning will include family involvement and outpatient providers. Outpatient providers will be cultivated for her; therapist, psychiatrist, or psychiatric nurse practitioner and primary care providers will be obtained for Deborah. DIAMOND ALCARAZ, ANGELA [id number]/[facility]PS #: [id number] MTDD
[2019-04-26] MEDS: Gabapentin CAP(*) 400 MG PO SCH (20:42)
[2019-04-26] MEDS ORDERED: diPHENhydraMINE PO* 50 MG PO SCH (21:00)
[2019-04-27] MEDS: Gabapentin CAP(*) 400 MG PO SCH (08:45)
[2019-04-27] MEDS: Multivitamins/Minerals TAB PO SCH (08:46)
[2019-04-27 08:52] VITALS: BP 101/77
[2019-04-27] MEDS ORDERED: FLUoxetine CAP* 20 MG PO SCH (09:00)
[2019-04-27] MEDS ORDERED: Gabapentin CAP(*) 400 MG PO SCH (12:00)
--- NOTE | 2019-04-29 09:54 | DS ---
CC: [facility], [facility]. DISCHARGE SUMMARY: DATE OF ADMISSION: 04/25/19 DATE OF DISCHARGE: 04/27/19 PROVIDER: Diamond Alcaraz NP, Psychiatry. SUPERVISING PHYSICIAN: Martin Michaels MD. DIAGNOSIS: Major depressive disorder, recurrent. CONDITION AT THE TIME OF DISCHARGE: Improved, psychiatrically cleared, stable. Deborah participated in some groups and was very social with peers. Her is agreeable to discharge, as is Deborah. She has done well here psychiatrically. She tolerated med changes including the addition of Prozac. She will be attending [facility]. MENTAL STATUS EXAMINATION: At the time of discharge, Deborah is calm, cooperative, and makes good eye contact. She is alert and oriented x4. Her grooming is excellent. Her speech pace is normal and thought processes are logical. She is not psychotic or delusional. She denies AH, VH, SI, and HI. Her insight and judgment are good. She is willing to follow up and urged to see a therapist. DISCHARGE INSTRUCTIONS TO THE PATIENT: A. Medications: 1. She is taking an ascorbic acid collagen supplement. 2. She is taking diphenhydramine 50 mg at bedtime. 3. She is taking fluoxetine 20 mg daily. 4. She is also taking gabapentin from her primary care provider. B. Diet is regular. C. Activities as tolerated. She is a nonsmoker. There are no studies pending at the time of discharge. D. Followup care: She has appointments at [facility] on at 1045 and [facility] [place] on 06/09/19 at 3 p.m. E. Disposition: She is being discharged to home where she lives with her . F. Substance abuse followup is not indicated. HOSPITAL COURSE: Part A: Chief Complaint: "If I killed myself I would be killing the one who is torturing me." The patient is a 58-year-old white female with a history of depression and purported bipolar disorder, who arrives brought in by herself and her and is here on a voluntary status after being unable to take care of herself anymore at home due to disabling depression. Deborah states that she voluntarily brought herself to the hospital with the goal today of revising medications and stopping feeling so extraordinarily depressed. She for approximately 25 years took gabapentin and Prozac and due to a change in her insurance, she was required to change her practitioner who then changed her to lithium, which did not go well due to intense tremor and then Depakote, which she does not like and she feels like it is making her more depressed. Deborah is depressed, but is apparently almost euthymic. She is pleasant and engaging, but when the surface is scratched, she gets unhappy and she gets frightened of how depressed she feels. She states she feels depressed 90% of the time. She indicates that perhaps 10% of the time she is manic, although she cannot give any details of manic symptoms other than she is not depressed any longer. She states she never gets typical manic symptoms She states that in order to get through the day, she makes charts with detailed listings of what she needs to get done, and sometimes minute by minute, including items such as to go outside and listen to the birds. She also puts on her list things that she "has to do," things like going to the doctor, seeing her son. She states that she is in an excellent relationship, that she has a good relationship with her son. Still she has psychomotor retardation. She is less interested in her activities. She has little energy. She cannot concentrate, and she sleeps more than she wants to. Part B: Psychiatric treatment was rendered. Deborah was admitted to the adult behavioral unit and placed on 15-minute checks for safety. She did well on the unit and went to groups and interacted with peers well. She tolerated the changes in medication including discontinuation of Depakote and beginning Prozac , gabapentin 300 mg was added at 2 p.m., which she may or may not continue as she stated, "I have a life, how can I remember to take my medication at 2 p.m?" Deborah is very happy with these changes. She states she was stable on the medications we ended up with for 25 years. I did indicate that I started the Prozac at 20 mg rather than 40 where it would most likely be most effective, as this was the pattern in the past (40-60 mg being most effective). I did this to avoid side effects that would be disabling. Deborah is very happy with these changes. Her mood lifted when she discovered that we would be making those changes. It should also be noted that we did some exploration of what is holding her back from feeling good and one of those things is that she has extraordinarily high expectations for herself. We introduced the idea of doing 70% of what she is capable of versus 100%, 100% of the time. She actually visually became more relaxed when she was considering this prospect and believed that it made a large difference in her to have that concept for herself. She is much improved. She is future oriented. Her interest in her life has increased significantly. She is working on feeling less guilty. Her energy has improved. She appears to be able to concentrate better. Her psychomotor retardation is reduced and she notes that she is no longer having suicidal ideation. DIAMOND ALCARAZ, ANGELA [id number]/[facility] #: [id number] CORY
== END 2019-04-27 12:20 | disposition home or self-care (01) | DRG 751 ==
LOC: ED 19:34 → BSU 23:13 → ED 04-26 03:24 → BSU 04-26 20:00
PROVIDERS: ADMIT Psychiatry & Neurology Psychiatry; ATTEND Psychiatry & Neurology Psychiatry
DX: F33.1 Major depressive disorder, recurrent, moderate (principal); R45.851 Suicidal ideations; Z79.899 Other long term (current) drug therapy; Z81.8 Family history of other mental and behavioral disorders
CPT/HCPCS: 36415; 80053; 80307; 80320; 80329; 81003; 81015; 84443; 85025; 87086; 99284; A9270-GY; G0480